=== PATIENT | female | born 1995 | race Caucasian/White ===

== ENCOUNTER 2017-08-22 18:39 | Inpatient (IN) ==
[2017-08-22] MEDS ORDERED: *HR* Morphine 2 MG/ML SYRINGE IVP ONE (18:49)
--- NOTE | 2017-08-22 18:49 | Emergency Department Note ---
Disposition Clinical Impression: Choledocholithiasis Disposition: Admitted As Inpatient Condition: Good General Adult HPI - General Chief complaint: ED Abdominal Pain Stated complaint: abd pain Time Seen by Provider: 08/22/17 18:47 Source: patient Limitations: no limitations - History of Present Illness Pain Scale: 9 - Related Data Home Medications Medication Instructions Recorded Confirmed No Known Home Drugs 08/22/17 08/22/17 Allergies Allergy/AdvReac Type Severity Reaction Status Date / Time No Known Allergies Allergy Verified 08/22/17 18:43 Past Medical History - Past Medical History Medical history: Reports: no medical history Psychiatric history: Reports: no psych history - Social History Smoking Status: Never smoker Smokeless Tobacco Status: No Alcohol use: Reports: occasionally Drug use: Reports: none Physical Exam - General Limitations: no limitations General appearance: alert Course Vital Signs Temperature 98 F 08/22/17 18:40 Pulse Rate 80 08/22/17 18:40 Respiratory Rate 16 08/22/17 18:40 Blood Pressure 135/86 08/22/17 18:40 O2 Sat by Pulse Oximetry 99 08/22/17 18:40 Temperature 98.2 F 08/22/17 20:06 Pulse Rate 62 08/22/17 20:06 Respiratory Rate 16 08/22/17 20:06 Blood Pressure 111/69 08/22/17 20:06 O2 Sat by Pulse Oximetry 97 08/22/17 20:06 Oxygen Delivery Oxygen Delivery Room Air Attestation Statement - Attestation Attestation: I examined this patient and my medical decision-making was reviewed with the Resident Physician. I agree with the documented findings, disposition and treatment plan as described except to the extent set forth below. Hifx-of-ghcb time provided Patient returns complaining of continued abdominal pain. She was diagnosed with suspected choledocholithiasis during her previous ED visit earlier today. She is agreeable to be admitted to the medicine service with GI consultation for possible ERCP intervention
--- NOTE | 2017-08-22 18:54 | Emergency Department Note ---
Disposition Clinical Impression: Choledocholithiasis Disposition: Admitted As Inpatient Condition: Good Forms: ED Satisfaction Letter, Work/School Release Time of Disposition: 18:59 General Adult HPI - General Chief complaint: ED Abdominal Pain Stated complaint: abd pain Time Seen by Provider: 08/22/17 18:47 Source: patient Limitations: no limitations Nursing Notes Reviewed: Yes Vital Signs Reviewed: Yes - History of Present Illness HPI Narrative: 21-year-old female presented to the emergency department after being seen and worked up today for abdominal pain. She was diagnosed with cold choledocolithiasis earlier today but left AMA. She came back to the emergency department for worsening abdominal pain. Patient denies any other new symptoms. Pain Scale: 9 - Related Data Home Medications Medication Instructions Recorded Confirmed Pnv No.122/Iron/Folic Acid 1 tab PO DAILY 08/22/17 08/22/17 [ Multi Tablet] Allergies Allergy/AdvReac Type Severity Reaction Status Date / Time No Known Allergies Allergy Verified 08/22/17 18:43 All systems ED: reviewed and negative except as stated. Constitutional: Denies: fever, chills Eyes: Reports: as per HPI ENT ED: Reports: as per HPI Cardiovascular: Denies: chest pain, palpitations Respiratory: Denies: cough, dyspnea, wheezes Gastrointestinal: Reports: abdominal pain, nausea Genitourinary: Reports: as per HPI Musculoskeletal: Reports: as per HPI Integumentary: Reports: as per HPI Neurological: Denies: weakness, numbness, paresthesias Psychiatric: Reports: as per HPI Endocrine: Reports: as per HPI Hematological/Lymphatic: Reports: as per HPI Allergic/Immunologic: Reports: as per HPI Past Medical History - Past Medical History Attestation: Yes The following information was validated with the patient. Medical history: Reports: no medical history Psychiatric history: Reports: no psych history - Social History Smoking Status: Never smoker Smokeless Tobacco Status: No Alcohol use: Reports: occasionally Drug use: Reports: none Physical Exam - General Limitations: no limitations General appearance: alert, in no apparent distress - Head Head exam: atraumatic, normocephalic, normal inspection - Chest Chest inspection: Present: normal inspection, symmetric chest wall rise. Absent : tenderness, rash - Respiratory Respiratory exam: Present: normal lung sounds bilaterally. Absent: respiratory distress, wheezes - Cardiovascular Cardiovascular exam: Present: regular rate, normal rhythm, normal heart sounds - Abdominal Exam Abdominal exam: Present: soft, tenderness, guarding, normal bowel sounds, Ortiz 's sign. Absent: distention, rebound, rigidity, organomegaly, tenderness at McBurney's Point Abdominal tenderness: Present: RUQ - Extremities Exam Extremities exam: Present: normal inspection, full ROM - Neurological Exam Neurological exam: Present: alert, oriented X3 - Psychiatric Psychiatric exam: Present: normal affect, normal mood - Skin Skin exam: Present: warm, intact Course Course Narrative: 21-year-old female presenting to the emergency department after leaving AMA earlier today for increasing abdominal pain. GI has argued and consult on this case. We will admit the patient to the hospitalist service and control pain while in the emergency department. - Reevaluation(s) Reevaluation #1: Danny Norman accepts the patient Time: 18:59 Vital Signs Temperature 98 F 08/22/17 18:40 Pulse Rate 80 08/22/17 18:40 Respiratory Rate 16 08/22/17 18:40 Blood Pressure 135/86 08/22/17 18:40 O2 Sat by Pulse Oximetry 99 08/22/17 18:40 Temperature 98 F 08/22/17 18:40 Pulse Rate 80 08/22/17 18:40 Respiratory Rate 16 08/22/17 18:40 Blood Pressure 135/86 08/22/17 18:40 O2 Sat by Pulse Oximetry 99 08/22/17 18:40 Oxygen Delivery Oxygen Delivery Room Air
--- NOTE | 2017-08-22 22:00 | Internal Med History&Physical ---
Date of Encounter: 08/22/17 Time of Encounter: 21:56 Assessment and Plan (1) UTI (urinary tract infection) Current visit: Yes Status: Acute Ceftriaxone. Check urine culture. Qualifiers: Qualified Code(s): N39.0 - Urinary tract infection, site not specified; R31.9 - Hematuria, unspecified; R31.9 - Hematuria, unspecified (2) Biliary colic Current visit: No Status: Acute Pain is not Classic of biliary colic. Negative Ortiz sign. No clinical or radiological evidence of cholecystitis. Pain may be related to urinary tract infection with pyelonephritis she had slight tenderness in the left CVA. Transaminases and bilirubin are normal. There was suspicion for common bile duct shadow. We await for G.I. input. Internal Medicine - H&P: HPI Chief complaint: abdominal pain History of present illness: Ms. Beasley is a 21 year old female presents to the emergency room today with the main considerable abdominal pain. Since this morning patient started experiencing episodes of abdominal pain in the upper mid abdomen as well as her back associated with nausea dry heaving. No fevers or chills. She denies any urine symptoms. Symptoms were not preceded by food intake. No prior similar symptoms. No known history of biliary disease. Patient has strong family history of gallbladder disease. She has multiple prior urinary tract infections. No history of kidney stones. Past Med Surg Social Fam HX - Past Medical History Medical history: no medical history Psychiatric history: no psych history - Social History Smoking Status: Never smoker Smokeless Tobacco Status: No Alcohol use: occasionally Drug use: none Internal Medicine - H&P: Meds No Known Home Drugs 08/22/17 [History] 3 Allergy/AdvReac Type Severity Reaction Status Date / Time No Known Allergies Allergy Verified 08/22/17 18:43 All Systems PM: A 10-system review of systems was performed and is negative for pertinent findings except as documented above in the HPI. Review of systems: 10 point review of systems is negative except for HPI - Constitutional Vitals: Temp Pulse Resp BP Pulse Ox 98.2 F 62 16 111/69 97 08/22/17 20:06 08/22/17 20:06 08/22/17 20:06 08/22/17 20:06 08/22/17 20:06 Exam: Gen.: patient is alert oriented times 3 not in distress cardiac: Normal S1, S2, no additional sounds or murmurs chest: Clear to auscultation Abdomen: Soft, slight tenderness to deep palpation in RUQ. No rebound. -ve ortiz signs lower extremity Lax calf muscles no swelling Neuro: no focal deficits Left CVA tenderness
[2017-08-23] MEDS: 0.9 % Sodium Chloride 1,000 ML IVC SCH ×2 (00:22→11:00)
[2017-08-23] MEDS: *HR* Morphine 2 MG/ML SYRINGE IVP PRN ×3 (03:10→16:30)
[2017-08-23 04:16] LABS: Basophils % 0.3 %; Eosinophils # 0.2 K/mcL (0.0-0.6); Eosinophils % 2.1 %; Hematocrit 36.6 % (35.3-44.9); Immature Granulocytes % 0.3 % (0-4); Lymphocytes # 3.3 K/mcL (0.6-4.6); Lymphocytes % 38.2 %; Mean Corpuscular HGB Conc 33.9 g/dL (31.6-35.5); Mean Corpuscular Hemoglobin 27.2 pg (28.0-33.3); Mean Corpuscular Volume 80.3 fL (83.0-100.0); Mean Platelet Volume 9.6 fL (9.4-12.4); Monocytes # 0.8 K/mcL (0.0-1.3); Monocytes % 8.6 %; Neutrophils # 4.4 K/mcL (1.6-8.9); Platelet Count 314 K/mcL (140-400); Red Blood Count 4.56 M/mcL (3.82-4.97); Red Cell Distribution Width 12.5 % (11.5-14.5); Segmented Neutrophils % 50.5 %
[2017-08-23 04:32] LABS: Alanine Aminotransferase 215 Units/L (0-55); Albumin 3.1 g/dL (3.5-5.0); Albumin/Globulin Ratio 0.9 (1.1-2.2); Alkaline Phosphatase 263 Units/L (38-126); Aspartate Amino Transferase 285 Units/L (5-34); BUN/Creatinine Ratio 11 (6-26); Bilirubin,Direct 0.6 mg/dL (0.0-0.5); Bilirubin,Indirect 0.3 mg/dL (0.0-1.2); Blood Urea Nitrogen 8 mg/dL (7-20); Calcium 8.8 mg/dL (8.6-10.8); Carbon Dioxide 24 mEq/L (19-29); Chloride 107 mEq/L (98-109); Globulin 3.3 g/dL (2.4-3.5); Glucose 117 mg/dL (70-99); Magnesium 1.7 mg/dL (1.6-2.6); Osmolality,Calculated 287 (280-300); Potassium 3.6 mEq/L (3.5-4.5); Sodium 139 mEq/L (136-145); Total Protein 6.4 g/dL (6.0-8.3); eGFR For African Americans > 60 (> 60); eGFR For Non-African Americans > 60 (> 60)
[2017-08-23 04:33] LABS: Bilirubin,Total 0.9 mg/dL (0.2-1.2); Hemoglobin 12.4 g/dL (11.5-15.4)
[2017-08-23 05:12] LABS: C-Reactive Protein 17 mg/L (Less than 5)
--- NOTE | 2017-08-23 09:20 | Internal Med Progress Note ---
Addendum entered and electronically signed by Leela Corley MD 08/23/17 16 :01: Patient does have elevated transaminases and alk phoshatase. ERCP showed stone in duct. Patient handled procedure including sphincterectomy and stent well. Will consult surgery as GI recommend cholecystectomy. Original Note: <Leela Corley - Last Filed: 08/23/17 10:03> Date of Encounter: 08/23/17 Time of Encounter: 09:10 - Assessment and plan (1) Choledocholithiasis Current Visit: Yes Status: Acute Assessment and plan: Gallbladder ultrasound the emergency department shows cholelithiasis with questionable echogenic material in the common bile duct raising the possibility of choledocholithiasis. -Await GI recommendations for possible ERCP. -Pain control, antiemetics, and IV fluids as patient is nothing by mouth. (2) UTI (urinary tract infection) Current Visit: Yes Status: Acute Assessment and plan: -Follow-up urine culture. -Day 2 of ceftriaxone. Qualifiers: Urinary tract infection type: acute cystitis Hematuria presence: without hematuria Qualified Code(s): N30.00 - Acute cystitis without hematuria (3) Flank pain Current Visit: Yes Status: Acute Assessment and plan: Patient with right-sided flank pain as well as right upper quadrant abdominal pain. This patient had a urinalysis suggestive of infection, and patient has mild tenderness in the right CVA. -As transaminases and bilirubin are normal, patient's pain may be due to pyelonephritis. -We will follow patient clinically and follow GI recommendations. - Subjective Interval history: Ms. Beasley is a 21-year-old female three weeks who presented to the emergency department yesterday for right upper quadrant pain that radiated to her right flank region. She was found to have a UTI in the emergency department as well as cholelithiasis with questionable echogenic material in the common bile duct raising the possibility of choledocolithiasis. Patient was admitted for GI consultation with potential ERCP. This morning, patient was resting comfortably. She still reports pain in her right upper quadrant with radiation to her right flank region. She denies any nausea, vomiting, or diarrhea. She states she has not had an appetite in a few days. - Constitutional Vitals: Temp Pulse Resp BP Pulse Ox 98.1 F 73 16 95/56 98 08/23/17 06:52 08/23/17 06:52 08/23/17 06:52 08/23/17 06:52 08/23/17 06:52 General appearance: Present: A&O X 3, pleasant, no acute distress - Respiratory Respiratory exam: Present: CTAB. Absent: accessory muscle use, rales, rhonchi, wheezes - Cardiovascular Cardiovascular exam: Present: RRR, +S1, +S2. Absent: diastolic murmur, gallop, rubs, systolic murmur - GI/Abdominal GI/Abdominal exam: Present: normal bowel sounds, soft, tenderness (Mild tenderness in the bilateral upper quadrants.), no peritoneal signs. Absent: distended Additional comments: Mild right-sided CVA tenderness. - Extremities Exam Extremities exam: Present: warm, radial pulses palpable and symmetrical. Absent : calf tenderness, cyanotic, pedal edema Internal Medicine: Result - Labs CBC & Chem 7: 08/23/17 03:56 08/23/17 03:56 Labs: Short CBC 08/23/17 Range/Units 03:56 WBC 8.7 (4.3-11.1) K/mcL Hgb 12.4 D (11.5-15.4) g/dL Hct 36.6 (35.3-44.9) % Plt Count 314 (140-400) K/mcL Neutrophils # 4.4 (1.6-8.9) K/mcL BMP 08/23/17 03:56 Sodium 139 Potassium 3.6 Chloride 107 Carbon Dioxide 24 BUN 8 Creatinine 0.75 Glucose 117 H Calcium 8.8 Liver Function 08/23/17 Range/Units 03:56 Total Bilirubin 0.9 D (0.2-1.2) mg/dL Direct Bilirubin 0.6 H (0.0-0.5) mg/dL AST 285 H (5-34) Units/L ALT 215 H (0-55) Units/L Alkaline Phosphatase 263 H (38-126) Units/L Albumin 3.1 L (3.5-5.0) g/dL Consult Discharge Plan - Plan Referrals: NONE,PCP [Primary Care Provider] - <Bassem Ivy H - Last Filed: 08/23/17 16:06> Date of Encounter: 08/23/17 - Constitutional Vitals: Temp Pulse Resp BP Pulse Ox 97.0 F L 68 15 130/95 97 08/23/17 15:23 08/23/17 15:23 08/23/17 15:23 08/23/17 15:23 08/23/17 15:23 Internal Medicine: Result - Labs CBC & Chem 7: 08/23/17 03:56 08/23/17 03:56 Labs: Short CBC 08/23/17 Range/Units 03:56 WBC 8.7 (4.3-11.1) K/mcL Hgb 12.4 D (11.5-15.4) g/dL Hct 36.6 (35.3-44.9) % Plt Count 314 (140-400) K/mcL Neutrophils # 4.4 (1.6-8.9) K/mcL BMP 08/23/17 03:56 Sodium 139 Potassium 3.6 Chloride 107 Carbon Dioxide 24 BUN 8 Creatinine 0.75 Glucose 117 H Calcium 8.8 Liver Function 08/23/17 Range/Units 03:56 Total Bilirubin 0.9 D (0.2-1.2) mg/dL Direct Bilirubin 0.6 H (0.0-0.5) mg/dL AST 285 H (5-34) Units/L ALT 215 H (0-55) Units/L Alkaline Phosphatase 263 H (38-126) Units/L Albumin 3.1 L (3.5-5.0) g/dL - Impressions Impressions Cath/Invasive Procedure 08/23/17 00:00 IMPRESSION: Successful placement of common duct stent. D/ / Ismael Horowitz MD / Ismael Horowitz MD Interpreting Provider: Ismael Horowitz MD - Attending Attestation GI Additional recommendations appreciated Continue Rocephin for UTI I examined this patient and my medical decision-making was reviewed with the Resident Physician. I agree with the documented findings, disposition and treatment plan as described except to the extent set forth below.
[2017-08-23] MEDS: Ondansetron 4 MG/2 ML VIAL IVP PRN ×2 (10:58→20:26)
--- NOTE | 2017-08-23 11:19 | Gastroenterology Consult Note ---
<Ryan Garcia Nancy - Last Filed: 08/23/17 11:17> Date of Encounter: 08/23/17 Time of Encounter: 10:30 - Assessment and plan (1) Choledocholithiasis Current Visit: Yes Status: Acute Assessment and plan: RU US 08/22/2017 with cholelithiasis without evidence of cholecystitis. Questionable echogenic material in the common duct raises possibility of choledocholithiasis although there is no biliary ductal dilation. LFTs elevated , with AST 285 and ALT 215. Plan for ERCP with Dr. Kwan today. Keep NPO - Time Spent With Patient Total time spent is greater than 50% in coordination of care (as documented) at patient's floor/unit and/or counseling patient: GI History of Present Illness - Data of Consult Patient: new to practice Consult date: 08/23/17 Requesting Physician: Bassem Ivy - Consult Narrative Reason for consult: Choledocholithiasis History of present illness: Ms. Beasley is a 21 year old female with no significant medical history who presented to the ED with abdominal pain that started yesterday morning. She reports episodes of abdominal pain in the upper mid abdomen as well as her back associated with nausea dry heaving. Patient has strong family history of gallbladder disease. RUQ US 08/22/2017 with cholelithiasis without evidence of cholecystitis. Questionable echogenic material in the common duct raises possibility of choledocholithiasis although there is no biliary ductal dilation. She denies fever, chills, chest pain, shortness of breath, nausea, vomiting, diarrhea, melena, or hematochezia. Procedures: None NSAIDs: None Anticoagulation: None Past Med Surg Social Fam HX - Past Medical History Medical history: no medical history Psychiatric history: no psych history - Social History Smoking Status: Never smoker Smokeless Tobacco Status: No Alcohol use: occasionally Drug use: none - Gastrointestinal Gastrointestinal: Present: as per HPI - Constitutional Constitutional: as per HPI - EENT Eyes: as per HPI Ears: Present: as per HPI Nose, mouth and throat: Present: as per HPI - Cardiovascular Cardiovascular ROS: Present: as per HPI - Respiratory Respiratory IM: Present: as per HPI - Genitourinary Genitourinary: Absent: change in color, Urinary frequency - Neurological ROS Neurological GI: Present: as per HPI - Hematologic/Lymphatic Hematologic/Lymphatic pediatric: Present: as per HPI - Musculoskeletal Musculoskeletal ROS GI: Present: as per HPI - Integumentary Integumentary GI: Present: as per HPI - Psychiatric ROS Psychiatric GI: Present: as per HPI - Endocrine Endocrine IM: Present: as per HPI - Constitutional Vitals: Temp Pulse Resp BP Pulse Ox 97.5 F L 56 16 103/62 97 08/23/17 10:44 08/23/17 10:44 08/23/17 10:44 08/23/17 10:44 08/23/17 10:44 General appearance: Present: cooperative, A&O X 3, no acute distress, answers questions appropriately - Head Head exam: Present: atraumatic, normocephalic - Eye Eye exam: Present: normal appearance, sclera anicteric - ENT ENT exam: Present: mucous membranes dry - Neck Neck exam general surgery: Present: normal inspection, trachea midline - Respiratory Respiratory exam: Present: CTAB - Cardiovascular Cardiovascular exam: Present: RRR, +S1, +S2 - GI/Abdominal GI/Abdominal exam: Present: soft, tenderness (RUQ), no peritoneal signs. Absent : distended, firm, guarding - Rectal Rectal exam: Present: deferred - Extremities Exam Extremities exam: Present: warm - Neurological Exam Neurological exam: Present: no focal deficits - Psychiatric Psychiatric exam: Present: normal affect, normal mood - Skin Skin exam: Present: dry, intact, normal color, warm Results - Labs CBC & Chem 7: 08/23/17 03:56 08/23/17 03:56 Labs: Last Result Calcium 8.8 mg/dL (8.6-10.8) 08/23/17 03:56 C-Reactive Protein 17 mg/L (Less than 5) H 08/23/17 03:56 Entire Visit Hgb 12.4 g/dL (11.5-15.4) D 08/23/17 03:56 Hct 36.6 % (35.3-44.9) 08/23/17 03:56 Total Bilirubin 0.9 mg/dL (0.2-1.2) D 08/23/17 03:56 AST 285 Units/L (5-34) H 08/23/17 03:56 ALT 215 Units/L (0-55) H 08/23/17 03:56 Consult Discharge Plan - Plan Referrals: NONE,PCP [Primary Care Provider] - <Sofy Kwan - Last Filed: 08/23/17 13:14> Date of Encounter: 08/23/17 Time of Encounter: 13:00 - Time Spent With Patient Total time spent is greater than 50% in coordination of care (as documented) at patient's floor/unit and/or counseling patient: GI History of Present Illness - Data of Consult Requesting Physician: Bassem Ivy - Consult Narrative History of present illness: Ms. Beasley is a 21 year old female - Constitutional Vitals: Temp Pulse Resp BP Pulse Ox 97.2 F L 61 18 124/83 97 08/23/17 13:02 08/23/17 13:02 08/23/17 13:02 08/23/17 13:02 08/23/17 13:02 Results - Labs CBC & Chem 7: 08/23/17 03:56 08/23/17 03:56 Labs: Last Result Calcium 8.8 mg/dL (8.6-10.8) 08/23/17 03:56 C-Reactive Protein 17 mg/L (Less than 5) H 08/23/17 03:56 Entire Visit Hgb 12.4 g/dL (11.5-15.4) D 08/23/17 03:56 Hct 36.6 % (35.3-44.9) 08/23/17 03:56 Total Bilirubin 0.9 mg/dL (0.2-1.2) D 08/23/17 03:56 AST 285 Units/L (5-34) H 08/23/17 03:56 ALT 215 Units/L (0-55) H 08/23/17 03:56 - Attending Attestation I examined this patient and my medical decision-making was reviewed with the Resident Physician. I agree with the documented findings, disposition and treatment plan as described except to the extent set forth below.
--- NOTE | 2017-08-23 13:13 | Anesthesia Evaluation PreOp ---
Date of Encounter: 08/23/17 Time of Encounter: 13:11 - Past History Planned Operation: ERCP Cardiac History: Denies any Significant Hx Pulmonary History: Denies Any Significant HX COMMUNITY SERVICE OFFICER COORDINATOR History: Denies Any Significant HX Other Medical History: Other Anesthesia History: No Prior Anesthetic Complications : No (Pt is 3 weeks ) Alcohol Use: none, occasionally Drug use: none Medications and Allergies No Known Home Drugs 08/22/17 [History] 3 Allergy/AdvReac Type Severity Reaction Status Date / Time No Known Allergies Allergy Verified 08/22/17 18:43 - Meds/Allergy Pre-op Review Medications Reviewed: Yes Allergies Reviewed: Yes Beta Blockers on Current Med List: No Anesthesia Results - Labs 08/23/17 03:56 08/23/17 03:56 Anesthesia Exam Vital Signs Temp Pulse Resp BP Pulse Ox 08/23/17 13:02 97.2 F L 61 18 124/83 97 08/23/17 10:44 97.5 F L 56 16 103/62 97 08/23/17 06:52 98.1 F 73 16 95/56 98 08/23/17 04:48 97.9 F 62 16 93/56 97 08/22/17 23:53 98.2 F 93 16 117/77 97 08/22/17 20:06 98.2 F 62 16 111/69 97 08/22/17 19:48 16 124/68 08/22/17 18:40 98 F 80 16 135/86 99 Intake and Output 08/22/17 08/23/17 08/23/17 23:59 07:59 15:59 Intake Total 0 / 0 0 / 0 1220 / 1220 Output Total 0 / 0 0 / 0 Balance 0 / 0 0 / 0 1220 / 1220 Intake: IV Fluids 1100 / 1100 0.9 % Sodium Chloride 1,000 ML 1000 / 1000 @ 100 mls/hr IVC .Q10H [facility] Rx#: [id number] Rocephin 1,000 MG In Dextrose 5 100 / 100 % (Minibag+) 100 ML 100 ML @ 200 mls/hr IVPB DAILY [facility] Rx#: [id number] Oral 0 / 0 0 / 0 120 / 120 Output: Urine 0 / 0 0 / 0 Other: Meal Clear Stool Characteristics Normal for Patient # Voids 1 1 1 # Bowel Movements 0 0 0 Weight 73.4 kg 73.4 kg Patient Weight 08/23/17 23:59 Weight 73.4 kg NPO (# of Hours): clears until 9am Pain Scale: 0 - HEENT Pupil (Motor): Pupils equal Mallampati: I Teeth: Poor dentition Oral Opening: Greater than 3 - COMMUNITY SERVICE OFFICER COORDINATOR COMMUNITY SERVICE OFFICER COORDINATOR Motor: Normal RUE, Normal LUE, Normal RLE, Normal LLE, Normal Face COMMUNITY SERVICE OFFICER COORDINATOR Sensory: Normal: RUE, LUE, RLE, LLE, Face - Cardiac Rhythm: Regular Murmur: None JVD: No Carotid Bruit: No - Pulmonary Breath Sounds: bilateral Clear Anesthesia Assess/Plan ASA Score: 1, 2 Modified Wanda Scale for Level of Consciousness: Cooperative, oriented, and tranquil Anesthetic Plan: General Autologous Blood: No Monitoring Plan: Standard Monitors Recovery Plan: PACU Anes Supervising Prov Stmt: Patient identified, chart reviewed. Pt denies medical history. Anesthesia risks and benefits discussed, patient ok to proceed.
[2017-08-23] MEDS ORDERED: *HR* FentaNYL (PF) 100 MCG/2 ML VIAL ONE (13:21)
[2017-08-23] MEDS ORDERED: Indomethacin 50 MG SUPP.RECT RC ONE (13:45)
[2017-08-23] MEDS ORDERED: *HR* Promethazine 25 MG/ML VIAL IVP PRN (13:49)
[2017-08-23] MEDS ORDERED: *HR* Meperidine 25 MG/ML SYRINGE IVP PRN (14:16)
[2017-08-23] MEDS: *HR* HYDROmorphone (PF) 1 MG/ML SYRINGE IVP PRN ×4 (14:20→14:44)
[2017-08-23] MEDS ORDERED: Acetaminophen IV 1,000 MG/100 ML INFUS..BTL ONE (15:09)
[2017-08-23] MEDS ORDERED: Acetaminophen IV 1,000 MG/100 ML INFUS..BTL IVPB ONE (15:13)
[2017-08-23] MEDS ORDERED: 0.9 % Sodium Chloride 500 ML ONE (15:15)
--- NOTE | 2017-08-23 15:59 | Anesthesia Evaluation Post Op ---
Date of Encounter: 08/23/17 Time of Encounter: 15:40 - Vital Signs Vital Signs: Vital Signs/O2 Sat/Glucose, Most Current Temp Pulse Resp BP Pulse Ox 08/23/17 15:23 97.0 F L 68 15 130/95 97 08/23/17 15:13 97.0 F L 80 20 143/99 98 08/23/17 15:04 62 12 139/94 99 08/23/17 14:54 56 16 151/95 96 08/23/17 14:43 97.1 F L 60 12 161/105 99 08/23/17 14:33 60 13 151/105 99 08/23/17 14:23 77 20 158/115 99 08/23/17 14:13 97.6 F 90 24 143/109 99 08/23/17 13:02 97.2 F L 61 18 124/83 97 - Lungs Lungs: Clear Ascult./Percussion - Airway Airway: Non-obstructed - Cardiovascular Regular Rate - Mental Status Mental Status: Alert & Oriented, Answers Appropriately - Pain Pain Scale: 5 Pain Scale used: Numeric (1 - 10) - Nausea Vomiting Nausea Vomiting: Not Present - Hydration Hydration: Tolerates oral liquids, Has not voided - Discharge PostOp Status: Transfer Patient to floor Anes Supervising Prov Stmt: Pt seen/evaluated, VSS and pt has met criteria for discharge to floor. - MD Davide
[2017-08-23] MEDS ORDERED: *HR* Morphine 2 MG/ML SYRINGE IVP PRN (20:00)
[2017-08-23] MEDS ORDERED: *HR* HYDROmorphone (PF) 1 MG/ML SYRINGE IVP PRN (21:53)
[2017-08-24] MEDS ORDERED: *HR* HYDROmorphone 2 MG/ML SYRINGE IVP ONE (01:09)
[2017-08-24 01:25] LABS: Basophils % 0.1 %; Hematocrit 40.5 % (35.3-44.9); Hemoglobin 13.7 g/dL (11.5-15.4); Immature Granulocytes % 0.7 % (0-4); Immature Platelets 2.1 % (1.1-6.1); Lymphocytes % 21.6 %; Mean Corpuscular HGB Conc 33.8 g/dL (31.6-35.5); Mean Corpuscular Hemoglobin 27.1 pg (28.0-33.3); Mean Corpuscular Volume 80.2 fL (83.0-100.0); Mean Platelet Volume 9.2 fL (9.4-12.4); Monocytes # 0.6 K/mcL (0.0-1.3); Monocytes % 4.3 %; Neutrophils # 10.1 K/mcL (1.6-8.9); Platelet Count 405 K/mcL (140-400); Red Blood Count 5.05 M/mcL (3.82-4.97); Red Cell Distribution Width 12.5 % (11.5-14.5); Segmented Neutrophils % 73.3 %
[2017-08-24 01:26] LABS: Basophils % 0.1 %; Hematocrit 40.2 % (35.3-44.9); Hemoglobin 13.6 g/dL (11.5-15.4); Immature Granulocytes % 0.4 % (0-4); Immature Platelets 1.7 % (1.1-6.1); Lymphocytes # 3.1 K/mcL (0.6-4.6); Lymphocytes % 22.3 %; Mean Corpuscular HGB Conc 33.8 g/dL (31.6-35.5); Mean Corpuscular Volume 79.9 fL (83.0-100.0); Mean Platelet Volume 9.2 fL (9.4-12.4); Monocytes # 0.6 K/mcL (0.0-1.3); Monocytes % 4.5 %; Neutrophils # 10.1 K/mcL (1.6-8.9); Platelet Count 393 K/mcL (140-400); Red Blood Count 5.03 M/mcL (3.82-4.97); Red Cell Distribution Width 12.5 % (11.5-14.5); Segmented Neutrophils % 72.7 %
[2017-08-24] MEDS: 0.9 % Sodium Chloride 1,000 ML IVC SCH ×5 (01:27→21:09)
[2017-08-24] MEDS ORDERED: *HR* Promethazine 25 MG/ML VIAL IVP PRN (01:28)
[2017-08-24] MEDS ORDERED: Ondansetron 4 MG/2 ML VIAL IVP PRN (01:28)
[2017-08-24 01:38] LABS: BUN/Creatinine Ratio 8 (6-26); Blood Urea Nitrogen 6 mg/dL (7-20); Calcium 9.5 mg/dL (8.6-10.8); Carbon Dioxide 25 mEq/L (19-29); Chloride 107 mEq/L (98-109); Glucose 118 mg/dL (70-99); Osmolality,Calculated 293 (280-300); Potassium 3.9 mEq/L (3.5-4.5); Sodium 142 mEq/L (136-145); eGFR For African Americans > 60 (> 60); eGFR For Non-African Americans > 60 (> 60)
[2017-08-24 01:39] LABS: Alanine Aminotransferase 228 Units/L (0-55); Albumin 3.5 g/dL (3.5-5.0); Alkaline Phosphatase 316 Units/L (38-126); Amylase 1614 Units/L (25-125); Aspartate Amino Transferase 135 Units/L (5-34); BUN/Creatinine Ratio 8 (6-26); Bilirubin,Total 0.6 mg/dL (0.2-1.2); Blood Urea Nitrogen 6 mg/dL (7-20); Calcium 9.4 mg/dL (8.6-10.8); Carbon Dioxide 25 mEq/L (19-29); Chloride 107 mEq/L (98-109); Globulin 3.6 g/dL (2.4-3.5); Glucose 117 mg/dL (70-99); Osmolality,Calculated 293 (280-300); Potassium 4.1 mEq/L (3.5-4.5); Sodium 142 mEq/L (136-145); Total Protein 7.1 g/dL (6.0-8.3); eGFR For African Americans > 60 (> 60); eGFR For Non-African Americans > 60 (> 60)
[2017-08-24 02:03] LABS: Lipase 3358 Units/L (8-78)
--- NOTE | 2017-08-24 03:07 | Event Note ---
Date of Encounter: 08/24/17 Time of Encounter: 00:20 Notified by RN at 00:17 that patient has severe intractable abdominal pain despite increased dose and frequency of Morphine and Dilaudid last evening and continued nausea and vomiting despite Zofran. She had an ERCP yesterday revealing choledocholithiasis and underwent successful biliary sphincterotomy and temporary stent placement into the common bile duct. Patient seen and examined at bedside. She is laying on her right side in moderate distress, appears uncomfortable, and tearful. Stat lipase, amylase, CBC , CMP and CT abd/plv with IV contrast were ordered due to concern for post-ERCP pancreatitis. IVFs were increased to NS 250cc/hr, Dilaudid frequency increased to 1mg q2h, and Phenergan was ordered. Labs revealed lipase 3358, amylase 1614, and WBC 13.9. CT abd/plv revealed acute uncomplicated pancreatitis. Vital signs stable. Will continue current therapy for acute ERCP induced pancreatitis. Plan discussed with and agreed upon with Dr. Austin. ITS Impressions Cath/Invasive Procedure 08/23/17 00:00 IMPRESSION: Successful placement of common duct stent. D/ / Ismael Horowitz MD / Ismael Horowitz MD Interpreting Provider: Ismael Horowitz MD Abdomen/Pelvis CT 08/24/17 01:39 IMPRESSION: Acute uncomplicated pancreatitis. Cholelithiasis. D/ / Kait Sims MD / Kait Sims MD Interpreting Provider: Kait Sims MD
[2017-08-24] MEDS: *HR* HYDROmorphone (PF) 1 MG/ML SYRINGE IVP PRN ×7 (03:33→21:08)
[2017-08-24] MEDS ORDERED: Ondansetron 4 MG/2 ML VIAL IVP SCH (08:00)
[2017-08-24] MEDS: *HR* Promethazine 25 MG/ML VIAL IVP PRN (08:04)
--- NOTE | 2017-08-24 11:19 | Internal Med Progress Note ---
Date of Encounter: 08/24/17 Time of Encounter: 11:16 - Assessment and plan (1) Pancreatitis, acute Current Visit: Yes Status: Acute Assessment and plan: Acute post ERCP pancreatitis, possibly related to gallstones as well Keep nothing by mouth, continue IV fluids Dilaudid IV as needed Protonix IV Considered cholecystectomy at a later time Qualifiers: Pancreatitis type: biliary Acute pancreatitis complication: no infection or necrosis Qualified Code(s): K85.10 - Biliary acute pancreatitis without necrosis or infection (2) Leukocytosis Current Visit: Yes Status: Acute Assessment and plan: Likely related to pancreatitis Qualifiers: Leukocytosis type: unspecified Qualified Code(s): D72.829 - Elevated white blood cell count, unspecified (3) Biliary colic Current Visit: Yes Status: Acute (4) Choledocholithiasis Current Visit: Yes Status: Acute Assessment and plan: Gallbladder ultrasound the emergency department shows cholelithiasis with questionable echogenic material in the common bile duct raising the possibility of choledocholithiasis. ERCP was performed and the 4 mm stone was removed through sphincterectomy, a temporary stent was placed into the common bile duct Followed by GI (5) UTI (urinary tract infection) Current Visit: Yes Status: Acute Assessment and plan: - urine culture showed grossly mixed batool -Day 3 of ceftriaxone. Qualifiers: Urinary tract infection type: acute cystitis Hematuria presence: without hematuria Qualified Code(s): N30.00 - Acute cystitis without hematuria - Subjective Interval history: Complains of nausea and abdominal pain 7 out of 10 in intensity/epigastric, no vomiting, no fevers or chills, no shortness of breath or chest pain. No dysuria - Constitutional Vitals: Temp Pulse Resp BP Pulse Ox 98.3 F 71 18 125/79 96 08/24/17 06:30 08/24/17 06:30 08/24/17 06:30 08/24/17 06:30 08/24/17 08:19 General appearance: Present: A&O X 3, pleasant, no acute distress - Head Head exam: Present: atraumatic, normocephalic - Eye Eye exam: Present: PERRL, conjuntiva pink, sclera anicteric Pupils: Present: PERRL - Neck Neck exam general surgery: Present: supple, trachea midline. Absent: lymphadenopathy - Respiratory Respiratory exam: Present: CTAB. Absent: accessory muscle use, rales, rhonchi, wheezes - Cardiovascular Cardiovascular exam: Present: RRR, +S1, +S2. Absent: diastolic murmur, gallop, rubs, systolic murmur - GI/Abdominal GI/Abdominal exam: Present: normal bowel sounds, soft, tenderness (Epigastric tenderness, no rebound), no peritoneal signs. Absent: distended - Extremities Exam Extremities exam: Present: warm, radial pulses palpable and symmetrical. Absent : calf tenderness, cyanotic, pedal edema - Neurological Exam Neurological exam: Present: CN II-XII intact, oriented X3, no focal deficits. Absent: pronater drift, facial droop, speech deficit - Skin Skin exam: Present: dry, intact Internal Medicine: Result - Labs CBC & Chem 7: 08/24/17 01:18 08/24/17 01:18 Labs: Short CBC 08/24/17 08/24/17 Range/Units 01:18 01:18 WBC 13.9 H D 13.8 H (4.3-11.1) K/mcL Hgb 13.6 13.7 (11.5-15.4) g/dL Hct 40.2 40.5 (35.3-44.9) % Plt Count 393 405 H (140-400) K/mcL Neutrophils # 10.1 H 10.1 H (1.6-8.9) K/mcL BMP 08/24/17 08/24/17 01:18 01:18 Sodium 142 142 Potassium 3.9 4.1 Chloride 107 107 Carbon Dioxide 25 25 BUN 6 L 6 L Creatinine 0.75 0.74 Glucose 118 H 117 H Calcium 9.5 9.4 Liver Function 08/24/17 Range/Units 01:18 Total Bilirubin 0.6 (0.2-1.2) mg/dL AST 135 H (5-34) Units/L ALT 228 H (0-55) Units/L Alkaline Phosphatase 316 H (38-126) Units/L Albumin 3.5 (3.5-5.0) g/dL - Impressions Impressions Cath/Invasive Procedure 08/23/17 00:00 IMPRESSION: Successful placement of common duct stent. D/ / Ismael Horowitz MD / Ismael Horowitz MD Interpreting Provider: Ismael Horowitz MD Abdomen/Pelvis CT 08/24/17 01:39 IMPRESSION: Acute uncomplicated pancreatitis. Cholelithiasis. D/ / Kait Sims MD / Kait Sims MD Interpreting Provider: Kait Sims MD Consult Discharge Plan - Plan Referrals: NONE,PCP [Primary Care Provider] -
--- NOTE | 2017-08-24 12:42 | General Surgery Consult Note ---
Date of Encounter: 08/25/17 Time of Encounter: 08:15 Assessment and Plan (1) Choledocholithiasis Current Visit: Yes Status: Acute Choledocholithiasis and cholelithiasis. Patient will need to have cholecystectomy in order to prevent recurrence. Will await surgery until patient 's abdominal pain has resolved, hopefully in a couple of days. Plan: - Diet: NPO for pancreatitis, - cholecystectomy with resolution of abd pain - continue antiemtic and pain control (2) Cholelithiasis Current Visit: Yes Status: Acute See plan above. Qualifiers: Cholelithiasis location: gallbladder Cholecystitis presence: without cholecystitis Biliary obstruction: without biliary obstruction Qualified Code(s): K80.20 - Calculus of gallbladder without cholecystitis without obstruction (3) Pancreatitis, acute Current Visit: Yes Status: Acute pancreatitis secondary to choledocholithias. ERCP performed and stone was removed. Patient is still in need of cholecystectomy but will continue to wait until epigastric/centralized abdominal pain has resolved before going to surgery. Qualifiers: Pancreatitis type: biliary Acute pancreatitis complication: no infection or necrosis Qualified Code(s): K85.10 - Biliary acute pancreatitis without necrosis or infection (4) Leukocytosis Current Visit: Yes Status: Acute likely 2/2 to pancreatitis and UTI. Continue to treat UTI with Ceftriaxone and NPO for pancreatitis Qualifiers: Leukocytosis type: unspecified Qualified Code(s): D72.829 - Elevated white blood cell count, unspecified History of Present Illness Consult date: 08/24/17 Reason for consult: other (cholelithiasis) Requesting physician: Leela Corley History of present illness: Patient is a 29-year-old female who presented to the ED for abdominal pain for 1 day and was diagnosed with choledocholithiasis and pancreatitis. ERCP was performed and stone was removed. Denies fevers, chills, dysuria. This morning patient was having intense abdominal pain and nausea and vomiting. Patient's pain in the epigastric region. Reported by nursing that later in the morning pain and N/V was better controlled and she was able to sleep. Past Med Surg Social Fam HX - Past Medical History Medical history: other (frequent UTIs) Psychiatric history: no psych history - Social History Smoking Status: Never smoker Smokeless Tobacco Status: No Alcohol use: none, occasionally Drug use: none - Family History Mother Living Status: Unknown Medications and Allergies No Known Home Drugs 08/22/17 [History] 3 Allergy/AdvReac Type Severity Reaction Status Date / Time No Known Allergies Allergy Verified 08/22/17 18:43 Review of Systems All systems PM: A 10-system review of systems was performed and is negative for pertinent findings except as documented above in the HPI. General Surgery Exam Initial Vital Signs Temp Pulse Resp BP Pulse Ox 98 F 80 16 135/86 99 08/22/17 18:40 08/22/17 18:40 08/22/17 18:40 08/22/17 18:40 08/22/17 18:40 - Additional Findings Constitutional: Alert, in no acute distress, well nourished, well developed. Head: Normocephalic, atraumatic, normal contour and symmetric, no masses, lesions or scars Heart: Normal, regular rate and rhythm, no murmurs Lungs: Clear to auscultation, no wheezes, rales, or rhonchi Abdomen: tenderness in the epigastric region primarily but disffuse tenderness worsened by movement, Soft,, and no masses palpable, bowel sounds present and normal, no guarding or rigidity. Extremities: No clubbing, cyanosis, or edema, radial pulse +2/4, capillary refill <2sec. Skin: Skin warm and dry, no lesions, no rashes, no jaundice Neurologic: Cranial nerves II through XII grossly intact, no focal deficits, strength within normal limits in all extremities Psych: Cooperative with exam, good eye contact, cognitive function intact, judgment good insight good, speech clear, thought process logical, and goal directed Exam Initial Vital Signs Temp Pulse Resp BP Pulse Ox 98 F 80 16 135/86 99 08/22/17 18:40 08/22/17 18:40 08/22/17 18:40 08/22/17 18:40 08/22/17 18:40 Results - Labs 08/25/17 03:24 08/25/17 03:24 Abnormal lab results WBC 13.9 K/mcL (4.3-11.1) H D 08/24/17 01:18 RBC 5.03 M/mcL (3.82-4.97) H 08/24/17 01:18 MCV 79.9 fL (83.0-100.0) L 08/24/17 01:18 MCH 27.0 pg (28.0-33.3) L 08/24/17 01:18 MPV 9.2 fL (9.4-12.4) L 08/24/17 01:18 Neutrophils # 10.1 K/mcL (1.6-8.9) H 08/24/17 01:18 BUN 6 mg/dL (7-20) L 08/24/17 01:18 Glucose 117 mg/dL (70-99) H 08/24/17 01:18 Direct Bilirubin 0.6 mg/dL (0.0-0.5) H 08/23/17 03:56 AST 135 Units/L (5-34) H 08/24/17 01:18 ALT 228 Units/L (0-55) H 08/24/17 01:18 Alkaline Phosphatase 316 Units/L (38-126) H 08/24/17 01:18 C-Reactive Protein 17 mg/L (Less than 5) H 08/23/17 03:56 Globulin 3.6 g/dL (2.4-3.5) H 08/24/17 01:18 Albumin/Globulin Ratio 1.0 (1.1-2.2) L 08/24/17 01:18 Amylase 1614 Units/L (25-125) H 08/24/17 01:18 Lipase 3358 Units/L (8-78) H 08/24/17 01:18 Diabetes panel 08/24/17 08/24/17 Range/Units 01:18 01:18 Sodium 142 142 (136-145) mEq/L Potassium 3.9 4.1 (3.5-4.5) mEq/L Chloride 107 107 (98-109) mEq/L Carbon Dioxide 25 25 (19-29) mEq/L BUN 6 L 6 L (7-20) mg/dL Creatinine 0.75 0.74 (0.57-1.11) mg/dL Glucose 118 H 117 H (70-99) mg/dL Calcium 9.5 9.4 (8.6-10.8) mg/dL AST 135 H (5-34) Units/L ALT 228 H (0-55) Units/L Alkaline Phosphatase 316 H (38-126) Units/L Albumin 3.5 (3.5-5.0) g/dL Calcium panel 08/24/17 08/24/17 Range/Units 01:18 01:18 Calcium 9.5 9.4 (8.6-10.8) mg/dL Albumin 3.5 (3.5-5.0) g/dL Pituitary panel 08/24/17 08/24/17 Range/Units 01:18 01:18 Sodium 142 142 (136-145) mEq/L Potassium 3.9 4.1 (3.5-4.5) mEq/L Chloride 107 107 (98-109) mEq/L Carbon Dioxide 25 25 (19-29) mEq/L BUN 6 L 6 L (7-20) mg/dL Creatinine 0.75 0.74 (0.57-1.11) mg/dL Glucose 118 H 117 H (70-99) mg/dL Calcium 9.5 9.4 (8.6-10.8) mg/dL Adrenal panel 08/24/17 08/24/17 Range/Units 01:18 01:18 Sodium 142 142 (136-145) mEq/L Potassium 3.9 4.1 (3.5-4.5) mEq/L Chloride 107 107 (98-109) mEq/L Carbon Dioxide 25 25 (19-29) mEq/L BUN 6 L 6 L (7-20) mg/dL Creatinine 0.75 0.74 (0.57-1.11) mg/dL Glucose 118 H 117 H (70-99) mg/dL Calcium 9.5 9.4 (8.6-10.8) mg/dL Total Bilirubin 0.6 (0.2-1.2) mg/dL AST 135 H (5-34) Units/L ALT 228 H (0-55) Units/L Alkaline Phosphatase 316 H (38-126) Units/L Albumin 3.5 (3.5-5.0) g/dL All other labs normal. Consult Discharge Plan - Plan Referrals: NONE,PCP [Primary Care Provider] -
[2017-08-24] MEDS: Pantoprazole 40 MG VIAL IVP SCH (13:52)
[2017-08-25] MEDS: *HR* HYDROmorphone (PF) 1 MG/ML SYRINGE IVP PRN ×9 (00:35→22:52)
[2017-08-25] MEDS: 0.9 % Sodium Chloride 1,000 ML IVC SCH ×4 (03:29→22:53)
[2017-08-25 03:50] LABS: Hemoglobin 11.7 g/dL (11.5-15.4); Mean Corpuscular HGB Conc 33.4 g/dL (31.6-35.5); Mean Corpuscular Hemoglobin 27.1 pg (28.0-33.3); Mean Corpuscular Volume 81.2 fL (83.0-100.0); Mean Platelet Volume 9.4 fL (9.4-12.4); Platelet Count 291 K/mcL (140-400); Red Blood Count 4.31 M/mcL (3.82-4.97); Red Cell Distribution Width 12.7 % (11.5-14.5)
[2017-08-25 04:06] LABS: BUN/Creatinine Ratio 7 (6-26); Blood Urea Nitrogen 4 mg/dL (7-20); Calcium 8.5 mg/dL (8.6-10.8); Carbon Dioxide 22 mEq/L (19-29); Chloride 109 mEq/L (98-109); Glucose 85 mg/dL (70-99); Lipase 648 Units/L (8-78); Osmolality,Calculated 288 (280-300); Potassium 3.5 mEq/L (3.5-4.5); Sodium 141 mEq/L (136-145); eGFR For African Americans > 60 (> 60); eGFR For Non-African Americans > 60 (> 60)
[2017-08-25] MEDS ORDERED: Lidocaine -MPF 2% 5 ML VIAL INFILT ONE (09:40)
[2017-08-25] MEDS ORDERED: Lidocaine -MPF 4% 5 ML AMPUL INFILT ONE (09:41)
[2017-08-25] MEDS ORDERED: *HR* Propofol 200 MG/20 ML VIAL IVP ONE (09:41)
[2017-08-25] MEDS ORDERED: Ondansetron 4 MG/2 ML VIAL IVP ONE (09:41)
[2017-08-25] MEDS ORDERED: *HR* Succinylcholine 200 MG/10 ML VIAL IVP ONE (09:41)
[2017-08-25] MEDS: Pantoprazole 40 MG VIAL IVP SCH (10:24)
--- NOTE | 2017-08-25 12:30 | Internal Med Progress Note ---
Date of Encounter: 08/25/17 Time of Encounter: 12:29 - Assessment and plan (1) Pancreatitis, acute Current Visit: Yes Status: Acute Assessment and plan: Acute post ERCP pancreatitis, possibly related to gallstones as well May try clear liquids, will go back to nothing by mouth if worse, continue IV fluids Dilaudid IV as needed Protonix IV Considered cholecystectomy per surgery recommendations Qualifiers: Pancreatitis type: biliary Acute pancreatitis complication: no infection or necrosis Qualified Code(s): K85.10 - Biliary acute pancreatitis without necrosis or infection (2) Leukocytosis Current Visit: Yes Status: Acute Assessment and plan: Likely related to pancreatitis Qualifiers: Leukocytosis type: unspecified Qualified Code(s): D72.829 - Elevated white blood cell count, unspecified (3) Biliary colic Current Visit: Yes Status: Acute (4) Choledocholithiasis Current Visit: Yes Status: Acute Assessment and plan: Gallbladder ultrasound the emergency department shows cholelithiasis with questionable echogenic material in the common bile duct raising the possibility of choledocholithiasis. ERCP was performed and the 4 mm stone was removed through sphincterectomy, a temporary stent was placed into the common bile duct Followed by GI Multiple stones still present in gallbladder (5) UTI (urinary tract infection) Current Visit: Yes Status: Acute Assessment and plan: - urine culture showed grossly mixed batool -Day 4 of ceftriaxone. Qualifiers: Urinary tract infection type: acute cystitis Hematuria presence: without hematuria Qualified Code(s): N30.00 - Acute cystitis without hematuria - Subjective Interval history: Complains of nausea and abdominal pain 8 out of 10 in intensity/epigastric but better than before, no vomiting, no fevers or chills, no shortness of breath or chest pain. No dysuria - Constitutional Vitals: Temp Pulse Resp BP Pulse Ox 98.6 F 88 18 132/91 98 08/25/17 10:10 08/25/17 10:10 08/25/17 10:10 08/25/17 10:10 08/25/17 10:10 General appearance: Present: A&O X 3, pleasant, no acute distress - Head Head exam: Present: atraumatic, normocephalic - Eye Eye exam: Present: PERRL, conjuntiva pink, sclera anicteric Pupils: Present: PERRL - Neck Neck exam general surgery: Present: supple, trachea midline. Absent: lymphadenopathy - Respiratory Respiratory exam: Present: CTAB. Absent: accessory muscle use, rales, rhonchi, wheezes - Cardiovascular Cardiovascular exam: Present: RRR, +S1, +S2. Absent: diastolic murmur, gallop, rubs, systolic murmur - GI/Abdominal GI/Abdominal exam: Present: normal bowel sounds, soft, tenderness (epigastric pain ), no peritoneal signs. Absent: distended - Extremities Exam Extremities exam: Present: warm, radial pulses palpable and symmetrical. Absent : calf tenderness, cyanotic, pedal edema - Neurological Exam Neurological exam: Present: CN II-XII intact, oriented X3, no focal deficits. Absent: pronater drift, facial droop, speech deficit - Skin Skin exam: Present: dry, intact Internal Medicine: Result - Labs CBC & Chem 7: 08/25/17 03:24 08/25/17 03:24 Consult Discharge Plan - Plan Referrals: NONE,PCP [Primary Care Provider] -
--- NOTE | 2017-08-25 14:01 | General Surgery Progress Note ---
Date of Encounter: 08/25/17 Time of Encounter: 09:00 - Assessment and Plan (1) Choledocholithiasis Current Visit: Yes Status: Acute Choledocholithiasis and cholelithiasis. Patient will need to have cholecystectomy in order to prevent recurrence. Will await surgery until patient 's abdominal pain has resolved, hopefully in a couple of days. Plan: - Diet: NPO - cholecystectomy when resolution of abd pain occurs - continue antiemetic and pain control (2) Cholelithiasis Current Visit: Yes Status: Acute See plan above. Qualifiers: Cholelithiasis location: gallbladder Cholecystitis presence: without cholecystitis Biliary obstruction: without biliary obstruction Qualified Code(s): K80.20 - Calculus of gallbladder without cholecystitis without obstruction (3) Pancreatitis, acute Current Visit: Yes Status: Acute pancreatitis secondary to choledocholithias. ERCP performed and stone was removed. Patient is still in need of cholecystectomy but will continue to wait until epigastric/centralized abdominal pain has resolved before going to surgery. Qualifiers: Pancreatitis type: biliary Acute pancreatitis complication: no infection or necrosis Qualified Code(s): K85.10 - Biliary acute pancreatitis without necrosis or infection (4) Leukocytosis Current Visit: Yes Status: Acute likely 2/2 to pancreatitis and UTI. Continue to treat UTI with Ceftriaxone and NPO for pancreatitis Qualifiers: Leukocytosis type: unspecified Qualified Code(s): D72.829 - Elevated white blood cell count, unspecified Subjective Narrative: Patient is a 29-year-old female who presented to the ED for abdominal pain for 1 day and was diagnosed with choledocholithiasis and pancreatitis. ERCP was performed and stone was removed. This morning patient was strongly abdominal pain but improved from yesterday. Patient denies having any more vomiting. Objective Vital Signs - Last 8 Hours Temp Pulse Resp BP Pulse Ox 08/25/17 10:10 98.6 F 88 18 132/91 98 Intake and Output 08/24/17 08/25/17 08/25/17 23:59 07:59 15:59 Intake Total 100 / 100 Output Total 300 / 300 Balance -200 / -200 Intake: IV Fluids 100 / 100 Rocephin 1,000 MG In Dextrose 5 100 / 100 % (Minibag+) 100 ML 100 ML @ 200 mls/hr IVPB DAILY [facility] Rx#: [id number] Oral 0 / 0 Output: Urine 300 / 300 Other: Meal NPO Lunch Blood Glucose* 81 - Additional Exam Constitutional: Alert, in no acute distress, well nourished, well developed. Head: Normocephalic, atraumatic, normal contour and symmetric, no masses, lesions or scars Heart: Normal, regular rate and rhythm, no murmurs Lungs: Clear to auscultation, no wheezes, rales, or rhonchi Abdomen: tenderness in the epigastric region primarily but disffuse tenderness worsened by movement, Soft,, and no masses palpable, bowel sounds present and normal, no guarding or rigidity. Extremities: No clubbing, cyanosis, or edema, radial pulse +2/4, capillary refill <2sec. Skin: Skin warm and dry, no lesions, no rashes, no jaundice Neurologic: Cranial nerves II through XII grossly intact, no focal deficits, strength within normal limits in all extremities Psych: Cooperative with exam, good eye contact, cognitive function intact, judgment good insight good, speech clear, thought process logical, and goal directed - Labs 08/25/17 03:24 08/25/17 03:24 Consult Discharge Plan - Plan Referrals: NONE,PCP [Primary Care Provider] -
[2017-08-26] MEDS: *HR* HYDROmorphone (PF) 1 MG/ML SYRINGE IVP PRN ×7 (03:25→23:08)
[2017-08-26 04:33] LABS: Hematocrit 34.7 % (35.3-44.9); Hemoglobin 11.5 g/dL (11.5-15.4); Mean Corpuscular HGB Conc 33.1 g/dL (31.6-35.5); Mean Corpuscular Hemoglobin 26.7 pg (28.0-33.3); Mean Corpuscular Volume 80.5 fL (83.0-100.0); Mean Platelet Volume 9.2 fL (9.4-12.4); Platelet Count 278 K/mcL (140-400); Red Blood Count 4.31 M/mcL (3.82-4.97); Red Cell Distribution Width 12.7 % (11.5-14.5)
[2017-08-26 04:52] LABS: Alanine Aminotransferase 70 Units/L (0-55); Albumin/Globulin Ratio 0.8 (1.1-2.2); Alkaline Phosphatase 184 Units/L (38-126); Aspartate Amino Transferase 15 Units/L (5-34); BUN/Creatinine Ratio 6 (6-26); Bilirubin,Total 0.8 mg/dL (0.2-1.2); Calcium 8.7 mg/dL (8.6-10.8); Carbon Dioxide 25 mEq/L (19-29); Chloride 108 mEq/L (98-109); Globulin 3.3 g/dL (2.4-3.5); Glucose 102 mg/dL (70-99); Magnesium 1.5 mg/dL (1.6-2.6); Osmolality,Calculated 289 (280-300); Phosphorous 3.1 mg/dL (2.3-4.7); Potassium 3.2 mEq/L (3.5-4.5); Sodium 141 mEq/L (136-145); eGFR For African Americans > 60 (> 60); eGFR For Non-African Americans > 60 (> 60)
[2017-08-26 04:56] LABS: Albumin 2.7 g/dL (3.5-5.0); Blood Urea Nitrogen 4 mg/dL (7-20)
[2017-08-26] MEDS: Pantoprazole 40 MG VIAL IVP SCH (08:04)
[2017-08-26] MEDS: 0.9 % Sodium Chloride 1,000 ML IVC SCH ×2 (08:05→18:20)
--- NOTE | 2017-08-26 11:26 | General Surgery Progress Note ---
Date of Encounter: 08/26/17 Time of Encounter: 11:26 - Assessment and Plan (1) Choledocholithiasis Current Visit: Yes Status: Acute Patient states discomfort remains. Pancreatitis was likely 2/2 choledococholelithiasis. ERCP was performed in a stone was removed. Her abdomen is not acute. Her WBC is improved from yesterday at 15.1 down from 15.9. Her lipase is down trending however she states abdominal discomfort remains. She was started on a clear liquid diet yesterday per the primary medicine team and she denies association with increased abdominal discomfort with the clear liquids. She denies nausea at this time with clear liquids. Plan: -continue supportive care and discomfort management. -Plans for laparoscopic cholecystectomy when resolution of abdominal pain occurs /pending clinical course, in the next 48-72 hours. -Continue G.I. prophylaxis -Continue IV ABX (ceftriaxone) day #2 -will add PRN Miralax as patient states she is unsure of when her last bowel movement was -will replace potassium and magnesium for bowel function (2) Pancreatitis, acute Current Visit: Yes Status: Acute See above Qualifiers: Pancreatitis type: biliary Acute pancreatitis complication: no infection or necrosis Qualified Code(s): K85.10 - Biliary acute pancreatitis without necrosis or infection (3) Leukocytosis Current Visit: Yes Status: Acute See above Qualifiers: Leukocytosis type: unspecified Qualified Code(s): D72.829 - Elevated white blood cell count, unspecified (4) Cholelithiasis Current Visit: Yes Status: Acute Qualifiers: Cholelithiasis location: gallbladder Cholecystitis presence: without cholecystitis Biliary obstruction: without biliary obstruction Qualified Code(s): K80.20 - Calculus of gallbladder without cholecystitis without obstruction (5) Electrolyte imbalance Current Visit: Yes Status: Acute Will replace potassium and magnesium today for bowel function. (6) Moderate malnutrition Current Visit: Yes Status: Acute Per record, patient has had no oral intake for approximately 4 days. She has been trialed per the primary medicine team on clear liquids. If patient will need to remain in PO in the future, recommend consideration for PICC line and TPN. Subjective Patient reports: no new complaints, still having pain, tolerating liquids well, voiding w/o difficulty, no flatus, no bowel movement, nausea, afebrile Objective Vital Signs - Last 8 Hours Temp Pulse Resp BP Pulse Ox 10/23/17 10:36 98.1 F 73 16 148/84 99 08/26/17 08:16 98 08/26/17 06:41 98.3 F 95 16 109/72 98 Intake and Output 08/25/17 08/26/17 08/26/17 23:59 07:59 15:59 Intake Total 1000 / 1000 100 / 100 1220 / 1220 Output Total 600 / 600 1000 / 1000 500 / 500 Balance 400 / 400 -900 / -900 720 / 720 Intake: IV Fluids 1000 / 1000 1100 / 1100 0.9 % Sodium Chloride 1,000 ML 1000 / 1000 1000 / 1000 @ 100 mls/hr IVC .Q10H [facility] Rx#: [id number] Rocephin 1,000 MG In Dextrose 5 100 / 100 % (Minibag+) 100 ML 100 ML @ 200 mls/hr IVPB DAILY [facility] Rx#: [id number] Oral 100 / 100 120 / 120 Output: Urine 600 / 600 1000 / 1000 500 / 500 Other: Meal Clear # Bowel Movements 0 0 - General physical appearance well nourished, no distress, moderate pain - Eyes normal ocular movement - ENT normal nares, normal mucosa, atraumatic, normocephalic - Neck Neck exam: trachea midline, no venous distension - Respiratory normal expansion, normal respiratory effort, clear to auscultation - Cardiovascular Cardiovascular exam: Present: RRR - Abdomen Abdomen: Present: bowel sounds present, soft, tender Abdominal Tenderness: RUQ, LUQ Hernia: none - Integumentary no rash, no growths - Neurologic CN 2-12 grossly intact, normal coordination, normal sensation - Musculoskeletal normal gait, normal posture - Psychiatric oriented to time, oriented to person, oriented to place, speech is normal, memory intact - Labs 08/26/17 04:06 08/26/17 04:06 Diabetes panel 08/26/17 Range/Units 04:06 Sodium 141 (136-145) mEq/L Potassium 3.2 L (3.5-4.5) mEq/L Chloride 108 (98-109) mEq/L Carbon Dioxide 25 (19-29) mEq/L BUN 4 L (7-20) mg/dL Creatinine 0.63 (0.57-1.11) mg/dL Glucose 102 H (70-99) mg/dL Calcium 8.7 (8.6-10.8) mg/dL AST 15 (5-34) Units/L ALT 70 H (0-55) Units/L Alkaline Phosphatase 184 H (38-126) Units/L Albumin 2.7 L D (3.5-5.0) g/dL Calcium panel 08/26/17 Range/Units 04:06 Calcium 8.7 (8.6-10.8) mg/dL Phosphorus 3.1 (2.3-4.7) mg/dL Albumin 2.7 L D (3.5-5.0) g/dL Pituitary panel 08/26/17 Range/Units 04:06 Sodium 141 (136-145) mEq/L Potassium 3.2 L (3.5-4.5) mEq/L Chloride 108 (98-109) mEq/L Carbon Dioxide 25 (19-29) mEq/L BUN 4 L (7-20) mg/dL Creatinine 0.63 (0.57-1.11) mg/dL Glucose 102 H (70-99) mg/dL Calcium 8.7 (8.6-10.8) mg/dL Adrenal panel 08/26/17 Range/Units 04:06 Sodium 141 (136-145) mEq/L Potassium 3.2 L (3.5-4.5) mEq/L Chloride 108 (98-109) mEq/L Carbon Dioxide 25 (19-29) mEq/L BUN 4 L (7-20) mg/dL Creatinine 0.63 (0.57-1.11) mg/dL Glucose 102 H (70-99) mg/dL Calcium 8.7 (8.6-10.8) mg/dL Total Bilirubin 0.8 (0.2-1.2) mg/dL AST 15 (5-34) Units/L ALT 70 H (0-55) Units/L Alkaline Phosphatase 184 H (38-126) Units/L Albumin 2.7 L D (3.5-5.0) g/dL Consult Discharge Plan - Plan Referrals: NONE,PCP [Primary Care Provider] -
[2017-08-26] MEDS ORDERED: Potassium Chloride 40 MEQ, Lidocaine 1% 2 ML in D5% in Water 500 ML IVPB ONE (11:43)
[2017-08-26] MEDS ORDERED: Magnesium Sulfate 2 GM in D5% in Water 100 ML IVPB ONE (11:44)
[2017-08-26] MEDS ORDERED: Potassium Chloride Elixir 20 MEQ/15 ML UDC PO ONE (13:02)
--- NOTE | 2017-08-26 13:03 | Internal Med Progress Note ---
Date of Encounter: 08/26/17 Time of Encounter: 13:00 - Assessment and plan (1) Pancreatitis, acute Current Visit: Yes Status: Acute Assessment and plan: Acute post ERCP pancreatitis, possibly related to gallstones as well Continue clear liquids for now, will go back to nothing by mouth if worse, continue IV fluids Dilaudid IV as needed Protonix IV Considered cholecystectomy within the next 48-72h per surgery recommendations Qualifiers: Pancreatitis type: biliary Acute pancreatitis complication: no infection or necrosis Qualified Code(s): K85.10 - Biliary acute pancreatitis without necrosis or infection (2) Leukocytosis Current Visit: Yes Status: Acute Assessment and plan: Likely related to pancreatitis Qualifiers: Leukocytosis type: unspecified Qualified Code(s): D72.829 - Elevated white blood cell count, unspecified (3) Biliary colic Current Visit: Yes Status: Acute (4) Choledocholithiasis Current Visit: Yes Status: Acute Assessment and plan: Gallbladder ultrasound the emergency department shows cholelithiasis with questionable echogenic material in the common bile duct raising the possibility of choledocholithiasis. ERCP was performed and the 4 mm stone was removed through sphincterectomy, a temporary stent was placed into the common bile duct Followed by GI Multiple stones still present in gallbladder (5) UTI (urinary tract infection) Current Visit: Yes Status: Acute Assessment and plan: - urine culture showed grossly mixed batool -Day 5 of ceftriaxone. may discontinue after 5th dose Qualifiers: Urinary tract infection type: acute cystitis Hematuria presence: without hematuria Qualified Code(s): N30.00 - Acute cystitis without hematuria - Subjective Interval history: Abdominl pain not worsening with clear liquids. Complains of nausea and still having abdominal pain 8 out of 10 in intensity/ epigastric but better than before, no vomiting, no fevers or chills, no shortness of breath or chest pain. No dysuria - Constitutional Vitals: Temp Pulse Resp BP Pulse Ox 98.1 F 73 16 148/84 99 08/26/17 10:36 08/26/17 10:36 08/26/17 10:36 08/26/17 10:36 08/26/17 10:36 General appearance: Present: A&O X 3, pleasant, no acute distress - Head Head exam: Present: atraumatic, normocephalic - Eye Eye exam: Present: PERRL, conjuntiva pink, sclera anicteric Pupils: Present: PERRL - Neck Neck exam general surgery: Present: supple, trachea midline. Absent: lymphadenopathy - Respiratory Respiratory exam: Present: CTAB. Absent: accessory muscle use, rales, rhonchi, wheezes - Cardiovascular Cardiovascular exam: Present: RRR, +S1, +S2. Absent: diastolic murmur, gallop, rubs, systolic murmur - GI/Abdominal GI/Abdominal exam: Present: normal bowel sounds, soft, tenderness (eigastric tenderness), no peritoneal signs. Absent: distended - Extremities Exam Extremities exam: Present: warm, radial pulses palpable and symmetrical. Absent : calf tenderness, cyanotic, pedal edema - Neurological Exam Neurological exam: Present: CN II-XII intact, oriented X3, no focal deficits. Absent: pronater drift, facial droop, speech deficit - Skin Skin exam: Present: dry, intact Internal Medicine: Result - Labs CBC & Chem 7: 08/26/17 04:06 08/26/17 04:06 Labs: Short CBC 08/26/17 Range/Units 04:06 WBC 15.1 H (4.3-11.1) K/mcL Hgb 11.5 (11.5-15.4) g/dL Hct 34.7 L (35.3-44.9) % Plt Count 278 (140-400) K/mcL BMP 08/26/17 04:06 Sodium 141 Potassium 3.2 L Chloride 108 Carbon Dioxide 25 BUN 4 L Creatinine 0.63 Glucose 102 H Calcium 8.7 Liver Function 08/26/17 Range/Units 04:06 Total Bilirubin 0.8 (0.2-1.2) mg/dL AST 15 (5-34) Units/L ALT 70 H (0-55) Units/L Alkaline Phosphatase 184 H (38-126) Units/L Albumin 2.7 L D (3.5-5.0) g/dL Consult Discharge Plan - Plan Referrals: NONE,PCP [Primary Care Provider] -
[2017-08-26] MEDS: Ondansetron 4 MG/2 ML VIAL IVP PRN (20:42)
[2017-08-27] MEDS: 0.9 % Sodium Chloride 1,000 ML IVC SCH ×3 (02:26→22:05)
[2017-08-27] MEDS: *HR* HYDROmorphone (PF) 1 MG/ML SYRINGE IVP PRN ×8 (02:27→23:55)
[2017-08-27] MEDS: *HR* Promethazine 25 MG/ML VIAL IVP PRN ×2 (02:27→17:10)
[2017-08-27 05:02] LABS: Hematocrit 30.7 % (35.3-44.9); Hemoglobin 10.1 g/dL (11.5-15.4); Mean Corpuscular HGB Conc 32.9 g/dL (31.6-35.5); Mean Corpuscular Volume 82.1 fL (83.0-100.0); Mean Platelet Volume 10.1 fL (9.4-12.4); Platelet Count 286 K/mcL (140-400); Red Blood Count 3.74 M/mcL (3.82-4.97); Red Cell Distribution Width 12.7 % (11.5-14.5)
[2017-08-27 05:20] LABS: BUN/Creatinine Ratio 7 (6-26); Calcium 8.5 mg/dL (8.6-10.8); Carbon Dioxide 23 mEq/L (19-29); Chloride 112 mEq/L (98-109); Glucose 107 mg/dL (70-99); Lipase 78 Units/L (8-78); Osmolality,Calculated 293 (280-300); Potassium 3.5 mEq/L (3.5-4.5); Sodium 143 mEq/L (136-145); eGFR For African Americans > 60 (> 60); eGFR For Non-African Americans > 60 (> 60)
[2017-08-27 05:21] LABS: Blood Urea Nitrogen 4 mg/dL (7-20)
[2017-08-27] MEDS ORDERED: D10% in Water 500 ML IVC PRN (08:55)
[2017-08-27] MEDS: Pantoprazole 40 MG VIAL IVP SCH (10:13)
--- NOTE | 2017-08-27 11:26 | General Surgery Progress Note ---
Date of Encounter: 08/27/17 Time of Encounter: 09:45 - Assessment and Plan (1) Choledocholithiasis Current Visit: Yes Status: Acute Patient's choledocholithiasis was likely the cause of her pancreatic tenderness. ERCP performed on 08/23/17. 4mm stone removed. Temporary stent was placed in the common bile duct. Multiple stones still present in the gallbladder. Patient's abdomen is not currently acute. White count has decreased to 12.0, down from 15.1 yesterday. Lipase is decreased to 78. Plan: -Continue supportive care and discomfort management. -PICC line team and nutrition has been consulted for TPN. -Continue GI prophylaxis and antibiotics. -Replace potassium as needed. -Consented for laparoscopic cholecystectomy in the next 24 hours (2) Pancreatitis, acute Current Visit: Yes Status: Acute Patient's [place] is likely secondary to choledocholithiasis. -ERCP was performed on 08/23/17 and stone was removed. -Patient requires cholecystectomy will continue to wait until epigastric/ central abdominal pain is resolved before going to surgery. -Patient states that her abdominal pain is improving, but is still present in the upper epigastric region radiating into her back on the left side. -Lipase is decreased to 78. Qualifiers: Pancreatitis type: biliary Acute pancreatitis complication: no infection or necrosis Qualified Code(s): K85.10 - Biliary acute pancreatitis without necrosis or infection (3) Leukocytosis Current Visit: Yes Status: Acute Patient's acidosis is likely secondary to pancreatitis and UTI. -Continue to treat UTI with ceftriaxone 1000 mg and nothing by mouth for pancreatitis. -Patient's white count today is 12.0, down from 15.1 yesterday. Qualifiers: Leukocytosis type: unspecified Qualified Code(s): D72.829 - Elevated white blood cell count, unspecified (4) Cholelithiasis Current Visit: Yes Status: Acute CT scan performed on 08/24/17 demonstrated the presence of acute uncomplicated pancreatitis and cholelithiasis without cholecystitis. -Patient denies having any right upper quadrant pain. Qualifiers: Cholelithiasis location: gallbladder Cholecystitis presence: without cholecystitis Biliary obstruction: without biliary obstruction Qualified Code(s): K80.20 - Calculus of gallbladder without cholecystitis without obstruction (5) Electrolyte imbalance Current Visit: Yes Status: Acute Replace potassium and magnesium as needed. -Current potassium is 3.5. -Potassium yesterday was 3.2. -Patient had received potassium 40 mg by mouth once. (6) Moderate malnutrition Current Visit: Yes Status: Acute No oral intakes 5 days. -Patient has been trialed primary metastatic edema and clear liquids. -Both PICC line team and nutrition have been consulted. -TPN has been discussed with patient. (7) UTI (urinary tract infection) Current Visit: Yes Status: Acute Patient's urine culture demonstrated grossly mixed batool. -Patient is currently on day 6 of ceftriaxone, 1000 mg. Qualifiers: Urinary tract infection type: acute cystitis Hematuria presence: without hematuria Qualified Code(s): N30.00 - Acute cystitis without hematuria Subjective Patient reports: feels better, still having pain, pain is less Narrative: Patient was seen and examined at bedside. Patient states that her abdominal pain has improved slightly since yesterday. She states that she still feels somewhat nauseous. Her bowel movement and is currently located in the epigastric area and radiates into the left side of her back. She admits to having a cough, although she has had this since before admission. She denies having any episodes of vomiting. She currently denies having fever, chills, or shortness of breath. Patient has been seen by nutrition, and they have explained the plan for PICC line and TPN with her. Objective Vital Signs - Last 8 Hours Temp Pulse Resp BP Pulse Ox 08/27/17 10:00 98.0 F 71 14 130/85 95 08/27/17 06:28 98.1 F 92 16 108/71 97 08/27/17 03:35 97.8 F 73 16 112/77 100 Intake and Output 08/26/17 08/27/17 08/27/17 23:59 07:59 15:59 Intake Total 1104 / 1104 1000 / 1000 Output Total 0 / 0 Balance 1104 / 1104 1000 / 1000 Intake: IV Fluids 1104 / 1104 1000 / 1000 0.9 % Sodium Chloride 1,000 ML 1000 / 1000 1000 / 1000 @ 100 mls/hr IVC .Q10H [facility] Rx#: [id number] Magnesium Sulfate 2 GM In 104 / 104 Dextrose 5% 100 ML @ 100 mls/hr IVPB ONCE ONE Rx#:[id number] Output: Urine 0 / 0 Other: Meal NPO NPO # Voids 1 # Bowel Movements 0 0 Weight 72.575 kg Blood Glucose* 133 139 121 Patient Weight 08/27/17 23:59 Weight 72.575 kg - Labs 08/27/17 04:00 08/27/17 04:00 Diabetes panel 08/27/17 Range/Units 04:00 Sodium 143 (136-145) mEq/L Potassium 3.5 (3.5-4.5) mEq/L Chloride 112 H (98-109) mEq/L Carbon Dioxide 23 (19-29) mEq/L BUN 4 L (7-20) mg/dL Creatinine 0.60 (0.57-1.11) mg/dL Glucose 107 H (70-99) mg/dL Calcium 8.5 L (8.6-10.8) mg/dL Calcium panel 08/27/17 Range/Units 04:00 Calcium 8.5 L (8.6-10.8) mg/dL Pituitary panel 08/27/17 Range/Units 04:00 Sodium 143 (136-145) mEq/L Potassium 3.5 (3.5-4.5) mEq/L Chloride 112 H (98-109) mEq/L Carbon Dioxide 23 (19-29) mEq/L BUN 4 L (7-20) mg/dL Creatinine 0.60 (0.57-1.11) mg/dL Glucose 107 H (70-99) mg/dL Calcium 8.5 L (8.6-10.8) mg/dL Adrenal panel 08/27/17 Range/Units 04:00 Sodium 143 (136-145) mEq/L Potassium 3.5 (3.5-4.5) mEq/L Chloride 112 H (98-109) mEq/L Carbon Dioxide 23 (19-29) mEq/L BUN 4 L (7-20) mg/dL Creatinine 0.60 (0.57-1.11) mg/dL Glucose 107 H (70-99) mg/dL Calcium 8.5 L (8.6-10.8) mg/dL - VTE Documentation of Mechanical Device: Intermittent pneumatic compression device Consult Discharge Plan - Plan Referrals: NONE,PCP [Primary Care Provider] -
[2017-08-27] MEDS ORDERED: Clinimix E 5%-15% SOLUTION 2,000 ML with MVI, adult with vitamin K 10 ML IVC SCH (17:00)
--- NOTE | 2017-08-27 17:02 | Internal Med Progress Note ---
Date of Encounter: 08/27/17 Time of Encounter: 13:00 - Assessment and plan (1) Choledocholithiasis Current Visit: Yes Status: Acute Assessment and plan: Gallbladder ultrasound the emergency department shows cholelithiasis with questionable echogenic material in the common bile duct raising the possibility of choledocholithiasis. ERCP was performed and the 4 mm stone was removed through sphincterectomy, a temporary stent was placed into the common bile duct. She developed acute onset of pancreatitis secondary to choledocholithiasis, she had sudden severe abdominal pain with lipase around 4000.. Symptoms resolved and lipase this morning was 75 Followed by Surgery. Multiple stones still present in gallbladder. She has scheduled for laparoscopic cholecystectomy tomorrow. (2) Pancreatitis, acute Current Visit: Yes Status: Acute Assessment and plan: Most likely related to: Dr. addison area lipase is now within normal limits and patient symptomatically is improved. Dilaudid IV as needed Protonix IV Qualifiers: Pancreatitis type: biliary Acute pancreatitis complication: no infection or necrosis Qualified Code(s): K85.10 - Biliary acute pancreatitis without necrosis or infection - Subjective Interval history: Patient says her pain is resolved. Denies any fever chills nausea vomiting. She was able to finish MiraLAX. - Constitutional Vitals: Temp Pulse Resp BP Pulse Ox 98.0 F 73 18 137/96 100 08/27/17 14:40 08/27/17 14:40 08/27/17 14:40 08/27/17 14:40 08/27/17 14:40 General appearance: Present: A&O X 3, pleasant, no acute distress Exam: General appearance: Present: A&O X 3, pleasant, no acute distress - Head Head exam: Present: atraumatic, normocephalic - Eye Eye exam: Present: PERRL, conjuntiva pink, sclera anicteric Pupils: Present: PERRL - Neck Neck exam general surgery: Present: supple, trachea midline. Absent: lymphadenopathy - Respiratory Respiratory exam: Present: CTAB. Absent: accessory muscle use, rales, rhonchi, wheezes - Cardiovascular Cardiovascular exam: Present: RRR, +S1, +S2. Absent: diastolic murmur, gallop, rubs, systolic murmur - GI/Abdominal GI/Abdominal exam: Present: normal bowel sounds, soft, tenderness (eigastric tenderness), no peritoneal signs. Absent: distended - Extremities Exam Extremities exam: Present: warm, radial pulses palpable and symmetrical. Absent : calf tenderness, cyanotic, pedal edema - Neurological Exam Neurological exam: Present: CN II-XII intact, oriented X3, no focal deficits. Absent: pronater drift, facial droop, speech deficit - Skin Skin exam: Present: dry, intact Internal Medicine: Result - Labs CBC & Chem 7: 08/27/17 04:00 08/27/17 04:00 Labs: Short CBC 08/27/17 Range/Units 04:00 WBC 12.0 H (4.3-11.1) K/mcL Hgb 10.1 L (11.5-15.4) g/dL Hct 30.7 L (35.3-44.9) % Plt Count 286 (140-400) K/mcL [facility] 08/27/17 04:00 Sodium 143 Potassium 3.5 Chloride 112 H Carbon Dioxide 23 BUN 4 L Creatinine 0.60 Glucose 107 H Calcium 8.5 L - VTE Documentation of Mechanical Device: Intermittent pneumatic compression device Consult Discharge Plan - Plan Referrals: NONE,PCP [Primary Care Provider] -
--- NOTE | 2017-08-27 19:45 | Anesthesia Evaluation PreOp ---
Date of Encounter: 08/27/17 Time of Encounter: 19:43 - Past History Planned Operation: Lap. Portia. Cardiac History: Denies any Significant Hx Pulmonary History: Denies Any Significant HX SAMPLE COLLECTOR History: Denies Any Significant HX Other Medical History: Denies Any Significant HX Anesthesia History: Past Anesthesia (ERCP 08/23/2107) : No Alcohol Use: none, occasionally Drug use: none Medications and Allergies No Known Home Drugs 08/22/17 [History] 3 Allergy/AdvReac Type Severity Reaction Status Date / Time No Known Allergies Allergy Verified 08/22/17 18:43 - Meds/Allergy Pre-op Review Medications Reviewed: Yes Allergies Reviewed: Yes Beta Blockers on Current Med List: No Anesthesia Results - Labs 08/27/17 04:00 08/27/17 04:00 - Imaging EKG: image reviewed Anesthesia Exam O2 Sat Weight 72.575 kg O2 Sat by Pulse Oximetry 99 O2 Sat by Pulse Oximetry 100 O2 Sat by Pulse Oximetry 95 O2 Sat by Pulse Oximetry 97 O2 Sat by Pulse Oximetry 100 O2 Sat by Pulse Oximetry 100 O2 Sat by Pulse Oximetry 98 Vital Signs Temp Pulse Resp BP Pulse Ox 98 F 80 16 135/86 99 08/22/17 18:40 08/22/17 18:40 08/22/17 18:40 08/22/17 18:40 08/22/17 18:40 Vital Signs/O2 Sat, Most Current Temp Pulse Resp BP Pulse Ox 97.7 F 68 16 120/81 99 08/27/17 19:37 08/27/17 19:37 08/27/17 19:37 08/27/17 19:37 08/27/17 19:37 Height: 5'6'' Weight: 160# - HEENT Pupil (Motor): Pupils equal, EOMI Mallampati: I Teeth: Normal Oral Opening: Greater than 3 - SAMPLE COLLECTOR LOC: Oriented SAMPLE COLLECTOR Motor: Normal RUE, Normal LUE, Normal RLE, Normal LLE, Normal Face SAMPLE COLLECTOR Sensory: Normal: RUE, LUE, RLE, LLE, Face - Cardiac Rhythm: Regular Murmur: None JVD: No Carotid Bruit: No - Pulmonary Breath Sounds: bilateral Clear Respiratory Effort: Symmetrical Anesthesia Assess/Plan ASA Score: 1 Modified Wanda Scale for Level of Consciousness: Cooperative, oriented, and tranquil Anesthetic Plan: General Autologous Blood: Yes Monitoring Plan: Standard Monitors Recovery Plan: PACU
[2017-08-28] MEDS: *HR* HYDROmorphone (PF) 1 MG/ML SYRINGE IVP PRN ×11 (02:24→23:05)
[2017-08-28] MEDS: *HR* Promethazine 25 MG/ML VIAL IVP PRN ×3 (02:25→17:17)
[2017-08-28 05:05] LABS: BUN/Creatinine Ratio 7 (6-26); Calcium 8.3 mg/dL (8.6-10.8); Carbon Dioxide 26 mEq/L (19-29); Chloride 111 mEq/L (98-109); Glucose 111 mg/dL (70-99); Magnesium 1.6 mg/dL (1.6-2.6); Osmolality,Calculated 292 (280-300); Phosphorous 3.8 mg/dL (2.3-4.7); Potassium 3.4 mEq/L (3.5-4.5); Sodium 142 mEq/L (136-145); Triglycerides 71 mg/dL (< 150); eGFR For African Americans > 60 (> 60); eGFR For Non-African Americans > 60 (> 60)
[2017-08-28 05:09] LABS: Blood Urea Nitrogen 4 mg/dL (7-20)
[2017-08-28] MEDS: 0.9 % Sodium Chloride 1,000 ML IVC SCH ×2 (07:05→10:46)
[2017-08-28] MEDS: Pantoprazole 40 MG VIAL IVP SCH (08:16)
[2017-08-28] MEDS: Ondansetron 4 MG/2 ML VIAL IVP PRN (08:41)
[2017-08-28] MEDS ORDERED: *HR* Propofol 200 MG/20 ML VIAL IVP ONE ×2 (15:10→16:31)
[2017-08-28] MEDS ORDERED: *HR* FentaNYL (PF) 100 MCG/2 ML VIAL ONE ×2 (15:10→16:31)
[2017-08-28] MEDS ORDERED: Acetaminophen IV 1,000 MG/100 ML INFUS..BTL ONE (15:47)
--- NOTE | 2017-08-28 15:59 | Internal Med Progress Note ---
Date of Encounter: 08/28/17 Time of Encounter: 12:00 - Assessment and plan (1) Choledocholithiasis Current Visit: Yes Status: Acute Assessment and plan: Gallbladder ultrasound the emergency department shows cholelithiasis with questionable echogenic material in the common bile duct raising the possibility of choledocholithiasis. ERCP was performed and the 4 mm stone was removed through sphincterectomy, a temporary stent was placed into the common bile duct. She developed acute onset of pancreatitis secondary to choledocholithiasis, she had sudden severe abdominal pain with lipase around 4000.. Symptoms resolved and lipase improved to 75 Followed by Surgery. Multiple stones still present in gallbladder. She has scheduled for laparoscopic cholecystectomy . We will follow up after surgery. (2) Pancreatitis, acute Current Visit: Yes Status: Acute Assessment and plan: Resolved. Most likely related to: choledulcolithiasis. lipase is now within normal limits and patient symptomatically is improved. Qualifiers: Pancreatitis type: biliary Acute pancreatitis complication: no infection or necrosis Qualified Code(s): K85.10 - Biliary acute pancreatitis without necrosis or infection - Subjective Interval history: No acute events. Patient has some pain in her back denies abdominal pain. She denies fevers chills nausea vomiting diarrhea. She has surgery scheduled for today. - Constitutional Vitals: Temp Pulse Resp BP Pulse Ox 98 F 56 16 102/66 98 08/28/17 12:04 08/28/17 12:04 08/28/17 12:04 08/28/17 12:04 08/28/17 12:04 General appearance: Present: A&O X 3, pleasant, no acute distress Exam: - Head Head exam: Present: atraumatic, normocephalic - Eye Eye exam: Present: PERRL, conjuntiva pink, sclera anicteric Pupils: Present: PERRL - Neck Neck exam general surgery: Present: supple, trachea midline. Absent: lymphadenopathy - Respiratory Respiratory exam: Present: CTAB. Absent: accessory muscle use, rales, rhonchi, wheezes - Cardiovascular Cardiovascular exam: Present: RRR, +S1, +S2. Absent: diastolic murmur, gallop, rubs, systolic murmur - GI/Abdominal GI/Abdominal exam: Present: normal bowel sounds, soft, tenderness (eigastric ), no peritoneal signs. Absent: distended - Extremities Exam Extremities exam: Present: warm, radial pulses palpable and symmetrical. Absent : calf tenderness, cyanotic, pedal edema - Neurological Exam Neurological exam: Present: CN II-XII intact, oriented X3, no focal deficits. Absent: pronater drift, facial droop, speech deficit - Skin Skin exam: Present: dry, intact Internal Medicine: Result - Labs CBC & Chem 7: 08/27/17 04:00 08/28/17 04:30 Labs: BMP 08/28/17 04:30 Sodium 142 Potassium 3.4 L Chloride 111 H Carbon Dioxide 26 BUN 4 L Creatinine 0.56 L Glucose 111 H Calcium 8.3 L - VTE Documentation of Mechanical Device: Intermittent pneumatic compression device Consult Discharge Plan - Plan Referrals: NONE,PCP [Primary Care Provider] -
[2017-08-28] MEDS ORDERED: Dexamethasone 4 MG/ML VIAL ONE (16:34)
[2017-08-28] MEDS ORDERED: Ondansetron 4 MG/2 ML VIAL ONE (16:34)
[2017-08-28] MEDS ORDERED: *HR* HYDROmorphone 2 MG/ML SYRINGE ONE (16:37)
[2017-08-28] MEDS ORDERED: Clinimix E 5%-15% SOLUTION 2,000 ML with MVI, adult with vitamin K 10 ML, Magnesium S... IVC SCH ×2 (17:00→18:36)
--- NOTE | 2017-08-28 17:04 | Operative Note ---
Date of procedure: 08/28/17 Pre-op diagnosis: Gallstone pancreatitis Post-op diagnosis: same Procedure: Laparoscopic cholecystectomy with cholangiogram Anesthesia: VICTOR MANUEL Surgeon: Kevin Orr Estimated blood loss (cc): 5 Specimen: Gallbladder Condition: stable Disposition: same day Procedure in Detail: After informed consent this patient was taken the operating room placed supine position. After adequate sedation anesthesia the abdomen was prepped and draped. A proper timeout was performed. Two towel clamps are placed at the umbilicus and a Veres needle was inserted into the abdomen. A 5 mm incision was made at the umbilicus. A 12 mm incision was made in the subxiphoid region. Two 5 mm incisions were made in the right upper quadrant that were 4 finger breadths and 6 finger breadths below the costal margin. The gallbladder was identified, retracted anteriorly and cephalad, and the infundibulum was skeletonized. The cystic duct was easily identified and was dissected free. A ductotomy was created in the cystic duct. A taut catheter was placed within the cystic duct and clipped. A cholangiogram was performed. Identifying the anatomy was difficult due to the patient's prior ERCP and stent placement. There was contrast that flowed from the cystic duct into the small bowel therefore I knew the distal common bile duct was intact. Once this was confirmed the clippers removed, the taut catheter was removed as well, and the cystic duct was clipped distally. The cystic duct was then transected with scissors. The gallbladder was resected off the liver surface. There was excellent hemostasis. A drain was place due to the acute inflammation and pus/ bile. The gallbladder was then retrieved through the 12 mm cannula site. At this point the abdomen was suctioned dry and the pneumoperitoneum was then evacuated. All ports were removed. The 12 mm cannula site was closed with an 0 Vicryl suture in [id number] fashion. The skin was closed with 4-0 Vicryl suture. Dermabond was placed as well. All instrument counts and needle counts are correct in the operation. She tolerated the procedure well and was transferred to the PACU in stable condition.
[2017-08-28] MEDS ORDERED: *HR* Midazolam HCl 2 MG/2 ML VIAL IVP ONE (17:22)
[2017-08-28] MEDS ORDERED: *HR* Midazolam HCl 2 MG/2 ML VIAL ONE (17:23)
[2017-08-28] MEDS ORDERED: *HR* Meperidine 50 MG/ML SYRINGE ONE ×2 (17:45→18:15)
[2017-08-28] MEDS ORDERED: Ketorolac 30 MG/ML VIAL ONE (17:45)
[2017-08-28] MEDS ORDERED: *HR* Morphine 10 MG/ML VIAL ONE (17:59)
[2017-08-28] MEDS ORDERED: *HR* HYDROmorphone (PF) 1 MG/ML SYRINGE ONE (18:15)
--- NOTE | 2017-08-28 18:25 | Anesthesia Evaluation Post Op ---
Date of Encounter: 08/28/17 Time of Encounter: 18:24 - Vital Signs Vital Signs: vss - Lungs Lungs: Clear Ascult./Percussion - Airway Airway: Non-obstructed - Cardiovascular Baseline Rhythm - Mental Status Mental Status: Alert & Oriented, Answers Appropriately - Pain Pain Scale used: [place] (Faces) (tolerable) - Nausea Vomiting Nausea Vomiting: Not Present - Hydration Hydration: Tolerates oral liquids, Has not voided - Discharge PostOp Status: Transfer Patient to floor
[2017-08-28] MEDS ORDERED: 0.9 % Sodium Chloride 1,000 ML IVC SCH (18:36)
[2017-08-28] MEDS ORDERED: D10% in Water 500 ML IVC PRN (18:36)
[2017-08-29] MEDS: Ondansetron 4 MG/2 ML VIAL IVP PRN ×3 (01:30→21:35)
[2017-08-29] MEDS: *HR* HYDROmorphone (PF) 1 MG/ML SYRINGE IVP PRN ×6 (01:30→21:35)
[2017-08-29] MEDS: *HR* Promethazine 25 MG/ML VIAL IVP PRN ×3 (04:04→22:28)
[2017-08-29 06:05] LABS: BUN/Creatinine Ratio 10 (6-26); Blood Urea Nitrogen 6 mg/dL (7-20); Calcium 9.1 mg/dL (8.6-10.8); Carbon Dioxide 25 mEq/L (19-29); Chloride 106 mEq/L (98-109); Glucose 133 mg/dL (70-99); Magnesium 1.9 mg/dL (1.6-2.6); Osmolality,Calculated 292 (280-300); Phosphorous 3.8 mg/dL (2.3-4.7); Potassium 4.1 mEq/L (3.5-4.5); Sodium 141 mEq/L (136-145); eGFR For African Americans > 60 (> 60); eGFR For Non-African Americans > 60 (> 60)
[2017-08-29] MEDS: Pantoprazole 40 MG VIAL IVP SCH (08:50)
[2017-08-29 09:47] LABS: Basophils % 0.2 %; Eosinophils % 0.1 %; Hemoglobin 10.5 g/dL (11.5-15.4); Immature Granulocytes % 0.9 % (0-4); Lymphocytes # 2.6 K/mcL (0.6-4.6); Lymphocytes % 18.4 %; Mean Corpuscular HGB Conc 32.8 g/dL (31.6-35.5); Mean Corpuscular Hemoglobin 26.5 pg (28.0-33.3); Mean Corpuscular Volume 80.8 fL (83.0-100.0); Mean Platelet Volume 9.6 fL (9.4-12.4); Monocytes # 1.3 K/mcL (0.0-1.3); Monocytes % 9.2 %; Platelet Count 319 K/mcL (140-400); Red Blood Count 3.96 M/mcL (3.82-4.97); Red Cell Distribution Width 12.3 % (11.5-14.5); Segmented Neutrophils % 71.2 %
--- NOTE | 2017-08-29 10:08 | General Surgery Progress Note ---
Date of Encounter: 08/29/17 Time of Encounter: 09:30 - Assessment and Plan (1) Choledocholithiasis Current Visit: Yes Status: Acute S/P laparoscopic cholecystectomy with intraoperative choliangiogram on 2016; patient states her abdominal discomfort is much different than prior to surgery. She reports that her discomfort is only related to "incisions." She denies nausea, vomiting, flatus, or bowel movement. She requests liquids to drink. Expected postoperative abdominal tenderness noted. Her incisions are clean, dry, and intact. Her vital signs are stable. She is afebrile. Plan: 1. Clear liquid diet with Ensure clear for breakfast. May advance to fulls at lunch if tolerates. 2. Add Toradol IV to 6 hours and PO Percocet for discomfort management 3. Continue G.I. prophylaxis 4. Continue DVT prophylaxis 5. Continue IV antibiotics 6. Will decrease TPN by half if she tolerates full liquid diet 7. Continue PRN Miralax; may hold for loose stools 8. Repeat a.m. labs 9. DC planning in the next 24 to 48 hours pending clinical course. (2) Pancreatitis, acute Current Visit: Yes Status: Resolved See above Qualifiers: Pancreatitis type: biliary Acute pancreatitis complication: no infection or necrosis Qualified Code(s): K85.10 - Biliary acute pancreatitis without necrosis or infection (3) Leukocytosis Current Visit: Yes Status: Acute See above Qualifiers: Leukocytosis type: unspecified Qualified Code(s): D72.829 - Elevated white blood cell count, unspecified (4) Cholelithiasis Current Visit: Yes Status: Resolved Qualifiers: Cholelithiasis location: gallbladder Cholecystitis presence: without cholecystitis Biliary obstruction: without biliary obstruction Qualified Code(s): K80.20 - Calculus of gallbladder without cholecystitis without obstruction (5) Electrolyte imbalance Current Visit: Yes Status: Acute Currently on TPN. We'll continue to monitor. (6) Moderate malnutrition Current Visit: Yes Status: Acute Currently on TPN. Will continue to monitor. Subjective Patient reports: no new complaints, feels better, still having pain (States "just the incisions hurt"), pain is less, voiding w/o difficulty, no flatus, no bowel movement, afebrile Objective Vital Signs - Last 8 Hours Temp Pulse Resp BP Pulse Ox 08/29/17 06:40 97.5 F L 52 16 127/78 98 08/29/17 04:01 97.6 F 58 16 115/71 95 Intake and Output 08/28/17 08/29/17 08/29/17 23:59 07:59 15:59 Intake Total 300 / 300 0 / 0 Output Total 5 / 5 0 / 0 Balance 295 / 295 0 / 0 Intake: IV Fluids 300 / 300 Oral 0 / 0 Output: Urine 0 / 0 Estimated Blood Loss Other: Meal NPO NPO for breakfast # Voids 1 Blood Glucose* 159 162 133 - General physical appearance no distress, moderate pain - Eyes normal ocular movement - ENT atraumatic, normocephalic - Neck Neck exam: no masses, trachea midline, no venous distension - Respiratory normal expansion, normal respiratory effort, clear to auscultation - Abdomen Abdomen: Present: bowel sounds present, soft, tender (Expected postoperative) Hernia: none - Incision Incision: Present: clean and dry, intact - Integumentary no rash, no growths - Neurologic CN 2-12 grossly intact, normal coordination - Musculoskeletal normal gait, normal posture - Psychiatric oriented to time, oriented to person, oriented to place, speech is normal, memory intact - Labs 08/29/17 09:25 08/29/17 04:50 Diabetes panel 08/29/17 Range/Units 04:50 Sodium 141 (136-145) mEq/L Potassium 4.1 (3.5-4.5) mEq/L Chloride 106 (98-109) mEq/L Carbon Dioxide 25 (19-29) mEq/L BUN 6 L (7-20) mg/dL Creatinine 0.63 (0.57-1.11) mg/dL Glucose 133 H (70-99) mg/dL Calcium 9.1 (8.6-10.8) mg/dL Calcium panel 08/29/17 Range/Units 04:50 Calcium 9.1 (8.6-10.8) mg/dL Phosphorus 3.8 (2.3-4.7) mg/dL Pituitary panel 08/29/17 Range/Units 04:50 Sodium 141 (136-145) mEq/L Potassium 4.1 (3.5-4.5) mEq/L Chloride 106 (98-109) mEq/L Carbon Dioxide 25 (19-29) mEq/L BUN 6 L (7-20) mg/dL Creatinine 0.63 (0.57-1.11) mg/dL Glucose 133 H (70-99) mg/dL Calcium 9.1 (8.6-10.8) mg/dL Adrenal panel 08/29/17 Range/Units 04:50 Sodium 141 (136-145) mEq/L Potassium 4.1 (3.5-4.5) mEq/L Chloride 106 (98-109) mEq/L Carbon Dioxide 25 (19-29) mEq/L BUN 6 L (7-20) mg/dL Creatinine 0.63 (0.57-1.11) mg/dL Glucose 133 H (70-99) mg/dL Calcium 9.1 (8.6-10.8) mg/dL - VTE Documentation of Mechanical Device: Intermittent pneumatic compression device Consult Discharge Plan - Plan Referrals: NONE,PCP [Primary Care Provider] -
[2017-08-29] MEDS: Ketorolac 15 MG/ML VIAL IVP SCH ×2 (11:47→18:15)
[2017-08-29] MEDS ORDERED: Clinimix E 5%-15% SOLUTION 2,000 ML with MVI, adult with vitamin K 10 ML, Magnesium S... IVC SCH ×2 (13:13→17:00)
[2017-08-29] MEDS: 0.9 % Sodium Chloride 1,000 ML IVC SCH (16:35)
[2017-08-29] MEDS: *HR* OxyCODONE/APAP 5/325 TABLET PO PRN (16:36)
--- NOTE | 2017-08-29 23:02 | Internal Med Progress Note ---
Date of Encounter: 08/29/17 Time of Encounter: 14:00 - Assessment and plan (1) Choledocholithiasis Current Visit: Yes Status: Acute Assessment and plan: POD #0 s/p laparascopic cholecystectomy. Management per surgery. (2) Pancreatitis, acute Current Visit: Yes Status: Resolved Assessment and plan: Resolved. Most likely related to: choledulcolithiasis. lipase is now within normal limits and patient symptomatically is improved. Qualifiers: Pancreatitis type: biliary Acute pancreatitis complication: no infection or necrosis Qualified Code(s): K85.10 - Biliary acute pancreatitis without necrosis or infection - Subjective Interval history: Returned from lap cholecystectomy. Tolerated well. - Constitutional Vitals: Temp Pulse Resp BP Pulse Ox 98.0 F 67 16 120/73 98 08/29/17 22:21 08/29/17 22:21 08/29/17 22:21 08/29/17 22:21 08/29/17 22:21 General appearance: Present: A&O X 3, pleasant, no acute distress Exam: Gen: NAD, AAOx3 CVS:rrr lung:ctab abdomen, soft, normoactive bowel sounds, non-distended, incisions are clean and dry. ext: no edema Internal Medicine: Result - Labs CBC & Chem 7: 08/29/17 09:25 08/29/17 04:50 Labs: Short CBC 08/29/17 Range/Units 09:25 WBC 14.0 H (4.3-11.1) K/mcL Hgb 10.5 L (11.5-15.4) g/dL Hct 32.0 L (35.3-44.9) % Plt Count 319 (140-400) K/mcL Neutrophils # 10.0 H (1.6-8.9) K/mcL BMP 08/29/17 04:50 Sodium 141 Potassium 4.1 Chloride 106 Carbon Dioxide 25 BUN 6 L Creatinine 0.63 Glucose 133 H Calcium 9.1 - VTE Documentation of Mechanical Device: Intermittent pneumatic compression device Consult Discharge Plan - Plan Referrals: Sarina Rod [employer] [employer] [Advanced Practice Nurse] - 09/13/17 8:00 am
[2017-08-30] MEDS: Ketorolac 15 MG/ML VIAL IVP SCH ×3 (00:08→11:24)
[2017-08-30] MEDS: *HR* HYDROmorphone (PF) 1 MG/ML SYRINGE IVP PRN ×2 (03:40→08:13)
[2017-08-30 04:15] LABS: Alanine Aminotransferase 35 Units/L (0-55); Albumin 2.4 g/dL (3.5-5.0); Albumin/Globulin Ratio 0.9 (1.1-2.2); Alkaline Phosphatase 113 Units/L (38-126); Aspartate Amino Transferase 22 Units/L (5-34); BUN/Creatinine Ratio 18 (6-26); Bilirubin,Total 0.2 mg/dL (0.2-1.2); Blood Urea Nitrogen 12 mg/dL (7-20); Carbon Dioxide 25 mEq/L (19-29); Chloride 111 mEq/L (98-109); Globulin 2.8 g/dL (2.4-3.5); Glucose 91 mg/dL (70-99); Magnesium 1.6 mg/dL (1.6-2.6); Osmolality,Calculated 295 (280-300); Phosphorous 4.3 mg/dL (2.3-4.7); Potassium 3.4 mEq/L (3.5-4.5); Sodium 143 mEq/L (136-145); Total Protein 5.2 g/dL (6.0-8.3); eGFR For African Americans > 60 (> 60); eGFR For Non-African Americans > 60 (> 60)
[2017-08-30] MEDS: *HR* Promethazine 25 MG/ML VIAL IVP PRN (04:52)
[2017-08-30 05:49] LABS: Basophils % 0.4 %; Eosinophils # 0.2 K/mcL (0.0-0.6); Eosinophils % 2.1 %; Hematocrit 28.2 % (35.3-44.9); Immature Granulocytes % 1.2 % (0-4); Lymphocytes # 2.8 K/mcL (0.6-4.6); Lymphocytes % 32.3 %; Mean Corpuscular HGB Conc 31.9 g/dL (31.6-35.5); Mean Corpuscular Hemoglobin 26.6 pg (28.0-33.3); Mean Corpuscular Volume 83.4 fL (83.0-100.0); Mean Platelet Volume 9.9 fL (9.4-12.4); Monocytes # 0.8 K/mcL (0.0-1.3); Monocytes % 9.1 %; Neutrophils # 4.7 K/mcL (1.6-8.9); Platelet Count 287 K/mcL (140-400); Red Blood Count 3.38 M/mcL (3.82-4.97); Red Cell Distribution Width 12.7 % (11.5-14.5); Segmented Neutrophils % 54.9 %
[2017-08-30] MEDS: Pantoprazole 40 MG VIAL IVP SCH (08:16)
[2017-08-30] MEDS: *HR* OxyCODONE/APAP 5/325 TABLET PO PRN (12:59)
[2017-08-30] MEDS: 0.9 % Sodium Chloride 1,000 ML IVC SCH (13:04)
--- NOTE | 2017-08-30 14:08 | General Surgery Progress Note ---
Date of Encounter: 08/30/17 Time of Encounter: 14:16 - Assessment and Plan (1) Choledocholithiasis Current Visit: Yes Status: Resolved S/P laparoscopic cholecystectomy with intraoperative choliangiogram on 2016; her vital signs are stable. She has afebrile. She has tolerating a regular diet and ambulating without difficulty. States are discomfort is currently controlled. She requests to be d/c'd. Plan: OK to d/c from a surgical perspective. Follow-up and post-surgical medications per d/c plan. (2) Pancreatitis, acute Current Visit: Yes Status: Resolved See above Qualifiers: Pancreatitis type: biliary Acute pancreatitis complication: no infection or necrosis Qualified Code(s): K85.10 - Biliary acute pancreatitis without necrosis or infection (3) Leukocytosis Current Visit: Yes Status: Acute See above Qualifiers: Leukocytosis type: unspecified Qualified Code(s): D72.829 - Elevated white blood cell count, unspecified (4) Cholelithiasis Current Visit: Yes Status: Resolved Qualifiers: Cholelithiasis location: gallbladder Cholecystitis presence: without cholecystitis Biliary obstruction: without biliary obstruction Qualified Code(s): K80.20 - Calculus of gallbladder without cholecystitis without obstruction (5) Electrolyte imbalance Current Visit: Yes Status: Acute See above (6) Moderate malnutrition Current Visit: Yes Status: Acute See above Subjective Patient reports: no new complaints, feels better, still having pain, pain is less, tolerating liquids well, tolerating a regular diet, voiding w/o difficulty , flatus, bowel movement, afebrile Objective Vital Signs - Last 8 Hours Temp Pulse Resp BP Pulse Ox 08/30/17 11:16 98.2 F 71 14 138/95 97 08/30/17 07:46 97.6 F 57 14 128/84 97 Intake and Output 08/29/17 08/30/17 08/30/17 23:59 07:59 15:59 Intake Total 360 / 360 0 / 0 1100 / 1100 Output Total 0 / 0 0 / 0 0 / 0 Balance 360 / 360 0 / 0 1100 / 1100 Intake: IV Fluids 1100 / 1100 0.9 % Sodium Chloride 1,000 ML 1000 / 1000 @ 50 mls/hr IVC .Q20H [facility] Rx#: [id number] Rocephin 1,000 MG In Dextrose 5 100 / 100 % (Minibag+) 100 ML 100 ML @ 200 mls/hr IVPB DAILY [facility] Rx#: [id number] Oral 360 / 360 0 / 0 0 / 0 Output: Urine 0 / 0 0 / 0 0 / 0 Other: Meal Dinner Percent of Meal Consumed 100% # Voids 1 Weight 81.278 kg Patient Weight 08/30/17 23:59 Weight 81.278 kg - General physical appearance well developed, well nourished, no distress, moderate pain - Eyes normal ocular movement - ENT atraumatic, normocephalic - Neck Neck exam: no masses, no bruits, trachea midline, no venous distension - Respiratory normal expansion, normal respiratory effort, clear to auscultation - Cardiovascular Cardiovascular exam: Present: RRR - Abdomen Abdomen: Present: bowel sounds present, soft, tender (Expected postoperative) Hernia: none - Integumentary no rash, no growths - Neurologic CN 2-12 grossly intact, normal coordination - Musculoskeletal normal gait, normal posture - Psychiatric oriented to time, oriented to person, oriented to place, speech is normal, memory intact - Labs 08/30/17 03:47 08/30/17 03:47 Diabetes panel 08/30/17 Range/Units 03:47 Sodium 143 (136-145) mEq/L Potassium 3.4 L (3.5-4.5) mEq/L Chloride 111 H (98-109) mEq/L Carbon Dioxide 25 (19-29) mEq/L BUN 12 (7-20) mg/dL Creatinine 0.65 (0.57-1.11) mg/dL Glucose 91 (70-99) mg/dL Calcium 8.0 L (8.6-10.8) mg/dL AST 22 (5-34) Units/L ALT 35 (0-55) Units/L Alkaline Phosphatase 113 (38-126) Units/L Albumin 2.4 L (3.5-5.0) g/dL Calcium panel 08/30/17 Range/Units 03:47 Calcium 8.0 L (8.6-10.8) mg/dL Phosphorus 4.3 (2.3-4.7) mg/dL Albumin 2.4 L (3.5-5.0) g/dL Pituitary panel 08/30/17 Range/Units 03:47 Sodium 143 (136-145) mEq/L Potassium 3.4 L (3.5-4.5) mEq/L Chloride 111 H (98-109) mEq/L Carbon Dioxide 25 (19-29) mEq/L BUN 12 (7-20) mg/dL Creatinine 0.65 (0.57-1.11) mg/dL Glucose 91 (70-99) mg/dL Calcium 8.0 L (8.6-10.8) mg/dL Adrenal panel 08/30/17 Range/Units 03:47 Sodium 143 (136-145) mEq/L Potassium 3.4 L (3.5-4.5) mEq/L Chloride 111 H (98-109) mEq/L Carbon Dioxide 25 (19-29) mEq/L BUN 12 (7-20) mg/dL Creatinine 0.65 (0.57-1.11) mg/dL Glucose 91 (70-99) mg/dL Calcium 8.0 L (8.6-10.8) mg/dL Total Bilirubin 0.2 (0.2-1.2) mg/dL AST 22 (5-34) Units/L ALT 35 (0-55) Units/L Alkaline Phosphatase 113 (38-126) Units/L Albumin 2.4 L (3.5-5.0) g/dL - VTE Documentation of Mechanical Device: Intermittent pneumatic compression device Consult Discharge Plan - Plan Instructions: Laparoscopic Cholecystectomy (DC) Additional Instructions: General Surgical Discharge Instructions 1. No pushing, pulling, or lifting greater than 15 lbs for two weeks. 2. You may shower beginning today, but no tub baths, soaking, or swimming for 2 weeks. 3. You may resume driving when you are off narcotics and are safe to react in a car. 4. Take narcotics as directed. Do not take more narcotics then directed and do not share your narcotics with any other person. Do not drink alcohol while on narcotics. 5. Take stool softeners (Colace) or a water based laxative (Miralax) while taking narcotics. You may hold for loose stools. 6. Report any fevers greater than 100.5F, increase abdominal discomfort, drainage that looks like pus, increased redness or pain at the surgical site, or any vomiting. 7. Report any pain in the calves, shortness of breath, or rapid heartbeat. 8. Follow-up in the office as directed. 9. If you were prescribed antibiotics, do not stop them without talking to your provider. Referrals: Sarina Rod CNP [Advanced Practice Nurse] - 09/13/17 8:00 am Prescriptions: Docusate Sodium [Colace] 100 mg PO BID PRN #60 capsule PRN Reason: consitpation Ibuprofen 800 mg PO Q8H #60 tablet OxyCODONE/APAP 5/325 [Percocet 5/325 MG] 1 each PO Q6H PRN #28 tablet PRN Reason: Pain rated 1-6
[2017-08-30 14:44] VITALS: BP 115/74
--- NOTE | 2017-08-30 15:10 | Discharge Summary ---
Date of Encounter: 08/30/17 Time of Encounter: 14:51 - Discharge Diagnosis (1) Choledocholithiasis Priority: Primary Status: Resolved (2) Pancreatitis, acute Priority: Secondary Status: Resolved Qualifiers: Pancreatitis type: biliary Acute pancreatitis complication: no infection or necrosis Qualified Code(s): K85.10 - Biliary acute pancreatitis without necrosis or infection (3) S/P ERCP Priority: Secondary Status: Acute (4) S/P laparoscopic cholecystectomy Priority: Secondary Status: Acute - Discharge Medications Prescriptions: Docusate Sodium [Colace] 100 mg PO BID PRN #60 capsule PRN Reason: consitpation Ibuprofen 800 mg PO Q8H #60 tablet OxyCODONE/APAP 5/325 [Percocet 5/325 MG] 1 each PO Q6H PRN #28 tablet PRN Reason: Pain rated 1-6 Home Medications: Docusate Sodium [Colace] 100 mg PO BID PRN #60 capsule 08/30/17 [Rx] Ibuprofen 800 mg PO Q8H #60 tablet 08/30/17 [Rx] OxyCODONE/APAP 5/325 [Percocet 5/325 MG] 1 each PO Q6H PRN #28 tablet 08/30/17 [ Rx] Allergies/Adverse Reactions: 3 Allergy/AdvReac Type Severity Reaction Status Date / Time No Known Allergies Allergy Verified 08/22/17 18:43 Date of admission: 08/25/17 09:43 Primary care physician: PCP NONE Consults: 08/27/17 08:40 Consult to Nutrition [CONS] Routine Comment: total fluids, miv and tpn, rate at 125 Consulting Provider: NUTRITION Reason for Dietary Consult: TPN Start and Manage Discharging clinician: Christa Dang - Patient Status Disposition: Home, Self-Care Condition: Good Functional capacity at discharge: independent ambulation Overall status at discharge: patient is progressing back to baseline - Discharge Instructions Instructions: Laparoscopic Cholecystectomy (DC) Follow Up With: Sarina Rod CNP [Advanced Practice Nurse] - 09/13/17 8:00 am Additional Instructions: General Surgical Discharge Instructions 1. No pushing, pulling, or lifting greater than 15 lbs for two weeks. 2. You may shower beginning today, but no tub baths, soaking, or swimming for 2 weeks. 3. You may resume driving when you are off narcotics and are safe to react in a car. 4. Take narcotics as directed. Do not take more narcotics then directed and do not share your narcotics with any other person. Do not drink alcohol while on narcotics. 5. Take stool softeners (Colace) or a water based laxative (Miralax) while taking narcotics. You may hold for loose stools. 6. Report any fevers greater than 100.5F, increase abdominal discomfort, drainage that looks like pus, increased redness or pain at the surgical site, or any vomiting. 7. Report any pain in the calves, shortness of breath, or rapid heartbeat. 8. Follow-up in the office as directed. 9. If you were prescribed antibiotics, do not stop them without talking to your provider. - Diet and Activity Activity: increase activity as tolerated Diet: advance to your usual diet Hospital course: Ms. Beasley is a 21 year old female presents to the emergency room abdominal pain associated with nausea dry heaving. No fevers or chills. Symptoms were not related to food intake. No prior similar symptoms. No known history of biliary disease. Patient has strong family history of gallbladder disease. No history of kidney stones. She did have a right upper quadrant ultrasound done on 08/22 2017, and upper quadrant showed cholelithiasis without evidence of cholecystitis. There was echogenic material in the common duct suggestive of choledocholithiasis without biliary ductal dilation. Her LFTs were initially elevated with AST of 218, ALT of 215. Underwent ERCP on 08/23, 4 mm stone was removed. Head, ductal stent placed. After ERCP patient had intractable abdominal pain with nausea and vomiting despite increased amounts of Dilaudid and morphine. That lipase and LFTs were done lipase was found to be elevated at 3358, amylase elevated at 1614. A CT abdomen and pelvis revealed acute pancreatitis. She was nontoxic. This was thought to be more from choledocholithiasis instead of the ERCP. She was placed nothing by mouth and was given increase in IV fluids. Lipase returned to normal and abdominal pain and improved. On 08/28 she underwent lap cholecystectomy. She tolerated procedure without any consultations. She was started on TPN and her diet was gradually advanced. TPN was discontinued and she tolerated diet without issue. She was discharged home in stable condition. - Time Spent with Patient Total time spent providing and/or coordinating discharge services: Less than 30 minutes - Constitutional Vitals: Temp Pulse Resp BP Pulse Ox 98.4 F 65 14 115/74 97 08/30/17 14:43 08/30/17 14:43 08/30/17 14:43 08/30/17 14:43 08/30/17 14:43 General appearance: Present: A&O X 3, pleasant, no acute distress Exam: - Respiratory normal expansion, normal respiratory effort, clear to auscultation - Cardiovascular Cardiovascular exam: Present: RRR - Abdomen Abdomen: Present: bowel sounds present, soft, tender (Expected postoperative) Hernia: none - Integumentary no rash, no growth Incisions are clean with no purulent drainage and no active bleed. - VTE Documentation of Mechanical Device: Intermittent pneumatic compression device
[2017-08-31] MEDS ORDERED: cefTRIAXone 1,000 MG in Water for inj. (sterile) 10 ML IVP SCH (09:00)
== END 2017-08-30 16:00 | disposition home or self-care (01) | DRG 263 ==
LOC: EMEROO 18:39 → 3ANU 18:39 → SUATTDRO 19:19 → 3ANU 19:50 → SUATTDRO 08-25 09:43
PROVIDERS: ADMIT Nurse Practitioner; ATTEND Student in an Organized Health Care Education/Training Program